=== PATIENT | male | born 1945 | race Caucasian/White ===

== ENCOUNTER 2017-03-12 17:05 | Observation (INO) | payer OTHER, MEDICARE, BC ==
[~2017-03-12] VITALS: Ht 182.9 cm; Wt 69.0 kg
[~2017-03-12 17:05] MED LIST: ASPI81TA82 PO; BACL10TA PO; CHOL5000 PO; CYCL1PAK PO; DOXY100 PO; DULO60 PO; LACT PO; LACT20SO4 PO; LEVO50TA4 PO; LYRI200C PO; METH10TA PO; MORP60TA20 PO; NITR-29 PO; OXYB5TAB PO; OXYC5 PO; REQU2TAB3 PO; SENN8.6T15 PO; TAB-TAB PO; TUB TRANSFER BENCH
[2017-03-12 17:15] VITALS: BP 146/80; PULSE 93; RESP 15; TEMP 97.8; O2SAT 96
[2017-03-12 17:18] VITALS: BP 146/80; PULSE 93; RESP 18; O2SAT 96
[2017-03-12] MEDS ORDERED: CYCL1TAB29 PO (17:58)
[2017-03-12] MEDS ORDERED: LYRI200C PO (17:58)
[2017-03-12] MEDS ORDERED: SENN8.6T15 PO (17:58)
[2017-03-12] MEDS ORDERED: ASPI81TA11 PO (17:58)
--- NOTE | 2017-03-12 18:25 | PD ---
HPI Chief Complaint: Fall Time Seen by Provider: 17:24 Travel History International Travel<30 days: No Contact w/Intl Traveler<30days: No Traveled to known affect area: No History of Present Illness HPI 72yo M with PMH of chronic back pain here with c/o lower back pain s/p fall at noon today. States he got out of bed and slipped and fell on mattress and hit his lower back. Denies any head trauma, LOC, chest pain, sob, n/v, abdominal pain, focal weakness or numbness. PFSH Past Medical History Anemia: Yes Arthritis: No Asthma: No Autoimmune Disease: No Blood Disorders: No Anxiety: No Depression: Yes Heart Rhythm Problems: No Cancer: No Cardiac Catheterization: Yes Cardiovascular Problems: Yes (CABG) High Cholesterol: No Chemotherapy: No Chest Pain: No Congestive Heart Failure: No COPD: No Cerebrovascular Accident: No Coronary Artery Disease: Yes Dementia: Yes Diabetes: No Diminished Hearing: No Endocrine: Yes GERD: Yes Genitourinary: Yes (SUPRAPUBIC CATH, D/T neurogenic bladder) Headaches: Yes Hiatal Hernia: No Hypertension: No Immune Disorder: No Implanted Vascular Access Dvce: Yes Kidney Stones: No Medical other: Yes (chronic back pain,cad,some dementia,anemia,high cholesterol ,pvd,) Musculoskeletal: Yes (BACK; SIATICA) Neurologic: Yes Psychiatric: No Reproductive: No Respiratory: No Migraines: No Radiation Therapy: No Renal Failure: No Seizures: No Sickle Cell Disease: No Sleep Apnea: No Thyroid Disease: Yes Ulcer: No Influenza Vaccination: Yes Past Surgical History Abdominal Surgery: No AICD: No Arteriovenous Shunt: No Body Medical Devices: WIRE IN JAW; Suprapubic catheter Cardiac Surgery: Yes (BYPASS in ) Cholecystectomy: Yes Coronary Artery Bypass Graft: Yes (2004) Ear Surgery: No Endocrine Surgery: No Eye Surgery: No Genitourinary Surgery: Yes (Suprapubic catheter) Gynecologic Surgery: No Insulin Pump: No Joint Replacement: No Neurologic Surgery: No Oral Surgery: No Pacemaker: No Thoracic Surgery: No Other Surgery: Yes (BACK; GALLBLADDER; BYPASS) Social History Alcohol Use: No Tobacco Use: No (QUIT 30 YEARS AGO ) Substance Use: No Allergies-Medications (Allergen,Severity, Reaction): Coded Allergies: *MDRO Multi-Drug Resistant Organism (Verified Adverse Reaction, Unknown, ) MRSA (urine) - 02/01/16, 02/12/2016 Reported Meds & Prescriptions Reported Meds & Active Scripts Active Tub Transfer Bench (Device) Device 1 Ea Reported Flexeril (Cyclobenzaprine HCl) 10 Mg Tab 10 Mg PO BID PRN Aspirin EC (Aspirin) 81 Mg Tabdr 81 Mg PO DAILY Lyrica (Pregabalin) 200 Mg Cap 200 Mg PO BID Senna Lax (Sennosides) 8.6 Mg Tab 8.6 Mg PO DAILY Review of Systems Except as stated in HPI: all other systems reviewed are Neg Physical Exam Narrative GENERAL: 72yo M in mild distres. SKIN: Focused skin assessment warm/dry. HEAD: Atraumatic. Normocephalic. EYES: Pupils equal and round. No scleral icterus. No injection or drainage. ENT: No nasal bleeding or discharge. Mucous membranes pink and moist. NECK: Trachea midline. No JVD. CARDIOVASCULAR: Regular rate and rhythm. No murmur appreciated. RESPIRATORY: No accessory muscle use. Clear to auscultation. Breath sounds equal bilaterally. GASTROINTESTINAL: Abdomen soft, non-tender, nondistended. No rebound tenderness or guarding.+Suprapubic catheter in placed. BACK: Left L4 TTP. Mild L4 TTP. Midline surgical scar. MUSCULOSKELETAL: Sensation equal bilaterally. No obvious deformities. No clubbing. No cyanosis. No edema. NEUROLOGICAL: Awake and alert. No obvious cranial nerve deficits. Motor grossly within normal limits. Normal speech. PSYCHIATRIC: Appropriate mood and affect; insight and judgment normal. Data Data Last Documented VS Vital Signs Date Time Temp Pulse Resp B/P (MAP) Pulse Ox O2 Delivery O2 Flow Rate FiO2 03/12/17 23:07 90 16 141/79 (99) 98 Nasal Cannula 2.00 03/12/17 17:[address] Lumb Spine W/O Contrast (03/12/17 ) Acetamin-Hydrocod 325-5 Mg ([place] 5-325 (03/12/17 19:15) Complete Blood Count With Diff (03/12/17 19:51) Basic Metabolic Panel (Bmp) (03/12/17 19:51) Mri L Spine W&W/O Contrast (03/12/17 ) Mri T Spine W & W/O Contrast (03/12/17 ) Abdomen, Kub Only (03/12/17 ) Urinalysis - C+S If Indicated (03/12/17 21:14) Morphine Inj (Morphine Inj) (03/12/17 22:15) Ondansetron Inj (Zofran Inj) (03/12/17 22:15) Sodium Chlor 0.9% 1000 Ml Inj (Ns 1000 M (03/12/17 22:15) Urine Culture (03/12/17 21:30) Gadodiamide Pf Inj (Omniscan Pf Inj) (03/12/17 21:50) Blood Culture (03/12/17 23:48) Admit Order (Ed Use Only) (03/12/17 23:48) Vancomycin Inj (Vancomycin Inj) (03/12/17 23:48) Gentamicin Inj (Gentamicin Inj) (03/12/17 23:48) Labs Laboratory Tests Test 03/12/17 20:05 03/12/17 21:30 White Blood Count 11.6 TH/MM3 Red Blood Count 4.86 MIL/MM3 Hemoglobin 13.8 GM/DL Hematocrit 42.3 % Mean Corpuscular Volume 87.1 FL Mean Corpuscular Hemoglobin 28.4 PG Mean Corpuscular Hemoglobin Concent 32.6 % Red Cell Distribution Width 15.2 % Platelet Count 250 TH/MM3 Mean Platelet Volume 7.4 FL Neutrophils (%) (Auto) 85.4 % Lymphocytes (%) (Auto) 6.6 % Monocytes (%) (Auto) 7.5 % Eosinophils (%) (Auto) 0.1 % Basophils (%) (Auto) 0.4 % Neutrophils # (Auto) 9.9 TH/MM3 Lymphocytes # (Auto) 0.8 TH/MM3 Monocytes # (Auto) 0.9 TH/MM3 Eosinophils # (Auto) 0.0 TH/MM3 Basophils # (Auto) 0.0 TH/MM3 CBC Comment DIFF FINAL Differential Comment Blood Urea Nitrogen 13 MG/DL Creatinine 0.68 MG/DL Random Glucose 86 MG/DL Calcium Level 8.7 MG/DL Sodium Level 135 MEQ/L Potassium Level 3.8 MEQ/L Chloride Level 100 MEQ/L Carbon Dioxide Level 27.2 MEQ/L Anion Gap 8 MEQ/L Estimat Glomerular Filtration Rate 115 ML/MIN Urine Color YELLOW Urine Turbidity CLOUDY Urine pH 7.5 Urine Specific [place] 1.017 Urine Protein 30 mg/dL Urine Glucose (UA) NEG mg/dL Urine Ketones 10 mg/dL Urine Occult Blood SMALL Urine Nitrite POS Urine Bilirubin NEG Urine Urobilinogen LESS THAN 2.0 MG/DL Urine Leukocyte Esterase LARGE Urine RBC 26 /hpf Urine WBC /hpf Urine Amorphous Sediment RARE Urine Bacteria MANY /hpf Urine Mucus FEW /lpf Microscopic Urinalysis Comment CULTURE INDICATED MDM Medical Decision Making Medical Screen Exam Complete: Yes Emergency Medical Condition: Yes Differential Diagnosis Acute on chronic back pain vs. fracture Narrative Course 72yo M with lower back pain after falling at noon today. CT LS spine showed no acute fracture. Stable retrolisthesis of L2 on L3 of 6-7mm. Post remote laminectomy at L1-L2 and L2-L3 levels. Pt given lortab for pain. Pt said this is new but as per our record, he has chronic back pain. Pt able to lift both legs and sensation intact. However, pt states he his bilateral legs are weak and we used four people to help him ambulate but he is unable to ambulate. He usually ambulates with walker. Will do labs, MRI LS and sign out to next team to evaluate. Leelee Modi DO Mar 12, 2017 18:25
[2017-03-12 18:46] VITALS: BP 144/86; PULSE 87; RESP 16; O2SAT 100
--- NOTE | 2017-03-12 19:00 | RADRPT ---
EXAM DATE/TIME: 03/12/2017 18:29 [facility] COMPARISON: MRI LUMBAR SPINE W & W/O CONTRAST, January 11, 2016, 19:37. INDICATIONS : Severe back pain . Found on floor. RADIATION DOSE: 35.86 CTDIvol (mGy) MEDICAL HISTORY : Known posterior subluxation of L2 on L3 and disc bulges. Dementia. Cardiovascular disease Gastroesoph ageal reflux disease. SURGICAL HISTORY : CABG Cholecystectomy. ENCOUNTER: Initial ACUITY: 1 day PAIN SCALE: 9/10 LOCATION: back TECHNIQUE: Volumetric scanning of the lumbar spine was performed. Multiplanar reconstructions in the sagittal, coronal and oblique axial planes were performed. Using automated exposure control and adjustment of the mA and/or kV according to patient size, radiation dose was kept as low as reasonably achievable t o obtain optimal diagnostic quality images. DICOM format image data is available electronically for review and comparison. FINDINGS: VERTEBRAE: Normal vertebral body height. Mild degenerative changes are again noted greatest at the L2-3 level wi th vacuum disc phenomenon. There is diffuse osteopenia. ALIGNMENT: History subluxation of L2 on L3 is again noted of approximately 6-7 mm. T12-L1: The thecal sac has a normal diameter. No evidence of disc bulge or protrusion. The neural foramina are patent bilaterally. L1-L2: There is a mild annular disc bulge with mild flattening the anterior thecal sac no focal protrusion. The patient status post laminectomy.. The neural foramina are patent bilaterally. L2-L3: Posterior subluxation of L2 on L3 is again noted. There is a diffuse moderate disc bulge with flatten ing of the anterior thecal sac and narrowing of the neural foramina bilaterally. The patient is statu s post laminectomy. L3-L4: There is a mild disc bulge with minimal flattening of the anterior thecal sac and no focal protrusion . The neural foramina are patent bilaterally. L4-L5: There is a mild disc bulge with minimal flattening of the anterior thecal sac and no focal protrusion . The neural foramina are patent bilaterally. Degenerative changes are noted involving the facet sade nts. L5-S1: There is a mild disc bulge with minimal flattening of the anterior thecal sac and no focal protrusion . The neural foramina are patent bilaterally. Degenerative changes are noted involving the facet sade nts. CONCLUSION: 1. No acute fracture. 2. Stable retrolisthesis of L2 on L3 of 6-7 mm. 3. That is post remote laminectomy at the L1-2 and L2-3 levels. 4. Annular disc bulges with flattening of the anterior thecal sac at multiple levels and no focal pro trusion. 5. Degenerative changes involve the facet joints. Sandro Fuentes MD on March 12, 2017 at 18:50 Board Certified Radiologist. This report was verified electronically.
[2017-03-12] MEDS ORDERED: ACETAMINOPHEN/HYDROcodone 325 MG/5 MG TAB PO ONE (19:15)
--- NOTE | 2017-03-12 20:03 | PD ---
Physical Exam Narrative General: The patient is a well-developed well-nourished male in no acute distress Head and Neck exam: Head is normocephalic atraumatic. Eyes: EOMI, pupils are equal round and reactive to light. Nose: Midline septum with pink mucous membranes Mouth: Dentition unremarkable. Moist mucus membranes. Posterior oropharynx is not erythematous. No tonsillar hypertrophy. Uvula midline. Airway patent. Neck: No palpable lymphadenopathy. No nuchal rigidity. No thyromegaly. Cardiovascular: Regular rate and rhythm without murmurs, gallops, or rubs. Lungs: Clear to auscultation bilaterally. No wheezes, rhonchi, or rales. Abdomen: Soft, without tenderness to palpation in all 4 quadrants of the abdomen. No guarding, rebound, or rigidity. Normal bowel sounds are audible. No tenderness on palpation of McBurney's point. The patient has a chronic indwelling suprapubic catheter. Extremities: No clubbing or cyanosis. The patient has trace pedal edema on the right, 1+ on the lab. He reports that his left leg is often more swollen than the right radius unsure of the reason. He does have a bandage in place on the lower extremity below the knee and appears to have some lymphedema. 2+ pulses in all 4 extremities. Back: No costovertebral angle tenderness to palpation. Neurologic Exam: Cranial nerves 2-12 were intact on exam. Strength is 5/5 in bilateral upper extremities, 3 over 5 strength in bilateral lower extremities. Skin Exam: No rash noted. Intact skin that is warm and dry. Data Data Last Documented VS Vital Signs Date Time Temp Pulse Resp B/P (MAP) Pulse Ox O2 Delivery O2 Flow Rate FiO2 03/12/17 23:07 90 16 141/79 (99) 98 Nasal Cannula 2.00 03/12/17 17:[address] Lumb Spine W/O Contrast (03/12/17 ) Acetamin-Hydrocod 325-5 Mg ([place] 5-325 (03/12/17 19:15) Complete Blood Count With Diff (03/12/17 19:51) Basic Metabolic Panel (Bmp) (03/12/17 19:51) Mri L Spine W&W/O Contrast (03/12/17 ) Mri T Spine W & W/O Contrast (03/12/17 ) Abdomen, Kub Only (03/12/17 ) Urinalysis - C+S If Indicated (03/12/17 21:14) Morphine Inj (Morphine Inj) (03/12/17 22:15) Ondansetron Inj (Zofran Inj) (03/12/17 22:15) Sodium Chlor 0.9% 1000 Ml Inj (Ns 1000 M (03/12/17 22:15) Urine Culture (03/12/17 21:30) Gadodiamide Pf Inj (Omniscan Pf Inj) (03/12/17 21:50) Blood Culture (03/12/17 23:48) Admit Order (Ed Use Only) (03/12/17 23:48) Vancomycin Inj (Vancomycin Inj) (03/12/17 23:48) Gentamicin Inj (Gentamicin Inj) (03/12/17 23:48) Labs Laboratory Tests Test 03/12/17 20:05 03/12/17 21:30 White Blood Count 11.6 TH/MM3 Red Blood Count 4.86 MIL/MM3 Hemoglobin 13.8 GM/DL Hematocrit 42.3 % Mean Corpuscular Volume 87.1 FL Mean Corpuscular Hemoglobin 28.4 PG Mean Corpuscular Hemoglobin Concent 32.6 % Red Cell Distribution Width 15.2 % Platelet Count 250 TH/MM3 Mean Platelet Volume 7.4 FL Neutrophils (%) (Auto) 85.4 % Lymphocytes (%) (Auto) 6.6 % Monocytes (%) (Auto) 7.5 % Eosinophils (%) (Auto) 0.1 % Basophils (%) (Auto) 0.4 % Neutrophils # (Auto) 9.9 TH/MM3 Lymphocytes # (Auto) 0.8 TH/MM3 Monocytes # (Auto) 0.9 TH/MM3 Eosinophils # (Auto) 0.0 TH/MM3 Basophils # (Auto) 0.0 TH/MM3 CBC Comment DIFF FINAL Differential Comment Blood Urea Nitrogen 13 MG/DL Creatinine 0.68 MG/DL Random Glucose 86 MG/DL Calcium Level 8.7 MG/DL Sodium Level 135 MEQ/L Potassium Level 3.8 MEQ/L Chloride Level 100 MEQ/L Carbon Dioxide Level 27.2 MEQ/L Anion Gap 8 MEQ/L Estimat Glomerular Filtration Rate 115 ML/MIN Urine Color YELLOW Urine Turbidity CLOUDY Urine pH 7.5 Urine Specific [place] 1.017 Urine Protein 30 mg/dL Urine Glucose (UA) NEG mg/dL Urine Ketones 10 mg/dL Urine Occult Blood SMALL Urine Nitrite POS Urine Bilirubin NEG Urine Urobilinogen LESS THAN 2.0 MG/DL Urine Leukocyte Esterase LARGE Urine RBC 26 /hpf Urine WBC /hpf Urine Amorphous Sediment RARE Urine Bacteria MANY /hpf Urine Mucus FEW /lpf Microscopic Urinalysis Comment CULTURE INDICATED MDM Medical Record Reviewed: Yes Supervised Visit with DEBBIE: No Interpretation(s) Last Impressions Lumbar Spine CT 03/12/17 0000 Signed Impressions: Service Date/Time: Sunday, March 12, 2017 18:29 - CONCLUSION: 1. No acute fracture. 2. Stable retrolisthesis of L2 on L3 of 6-7 mm. 3. That is post remote laminectomy at the L1-2 and L2-3 levels. 4. Annular disc bulges with flattening of the anterior thecal sac at multiple levels and no focal protrusion. 5. Degenerative changes involve the facet joints. Sandro Fuentes MD Narrative Course During the course of the patients emergency department visit, the patient was initially evaluated by Dr. Modi. Please see her complete history and physical. The patient reports having a history of chronic back pain and a reported history of fall. CT scan of the lumbar spine was done. CT scan lumbar spine showed no acute abnormality, chronic degenerative changes were noted, however when an attempt was made to ambulate the patient the patient was not able to walk. The patient reported having increased weakness in bilateral lower extremities. She decided to obtain IV access in order an MRI to rule out cord compression versus cauda equina syndrome. The patient's case was then checked out to me at the conclusion of her shift. The patient was initially provided hydrocodone 1 tab by mouth 1. The patients laboratory studies were reviewed and remarkable for a white count of 11.6, hemoglobin 13.8, platelets 250 with 85.4 neutrophils, lymphocytes 6.6, basic metabolic profile is remarkable for sodium of 135, a urinalysis was ordered due to the patient's slightly elevated white blood cell count. The patient's urine showed cloudy urine, 30 protein, small occult blood, positive nitrite, large leukocyte esterase, 26 RBCs, innumerable WBCs, many bacteria. Culture was indicated. Given the patient's history of multidrug resistant organisms and chronic indwelling suprapubic catheter patient was started on broad-spectrum antibiotics to include vancomycin 1 g IV, gentamicin IV. Radiology studies were reviewed and remarkable for CT scan lumbar spine shows no acute fracture. Stable retrolisthesis of L2 on L3 of 6-7 mm that is post remote laminectomy at L1-L2 and L2-L3. Annular disc bulges with flattening of the anterior thecal sac at multiple levels and no focal protrusion. Degenerative changes involving the facet joints. MRI of the T-spine showed mild multilevel degenerative spondylosis of the thoracic spine that is stable, no acute fracture or abnormal enhancement, MRI of the lumbar spine shows stable grade 14 mm retrolisthesis of L2 on L3 with effacement of the anterior right lateral recess. There is otherwise appropriate posterior laminectomy decompression. Multilevel degenerative spondylosis of the lumbar spine. Stable and nonspecific findings otherwise with 1.4 cm region of decreased signal in the posterior right ileum. The patients results were discussed with the patient, including the plan of care. I explained that further testing and/ or monitoring is indicated based on the patients history, examination, and/ or laboratory findings. Therefore, I recommended admission for additional evaluation. The patient expressed understanding and was agreeable with this plan. The patient was admitted to the hospital in guarded condition and sent to a bed [facility] the [facility]. Physician Communication Physician Communication The patient's case is discussed with Dr. Ferraro who did agree to admit the patient for further evaluation and treatment at this time. Diagnosis Primary Impression: Generalized weakness Additional Impressions: Back pain Qualified Codes: M54.5 - Low back pain Fall Qualified Codes: W19.XXXA - Unspecified fall, initial encounter Urinary tract infection Qualified Codes: T83.510A - Infection and inflammatory reaction due to cystostomy catheter, initial encounter; N39.0 - Urinary tract infection, site not specified Admitting Information Admitting Physician Requests: Luna Lara MD Mar 12, 2017 20:03
[2017-03-12 20:32] LABS: AUTOMATED NEUTROPHIL # 9.9 TH/MM3 (1.8-7.7); BASOPHIL % 0.4 % (0.0-2.0); EOSINOPHIL % 0.1 % (0.0-4.0); HEMATOCRIT 42.3 % (39.0-51.0); HEMO FLAGS DIFF FINAL; LYMPH % 6.6 % (9.0-44.0); LYMPHOCYTE # 0.8 TH/MM3 (1.0-4.8); MEAN CELL VOLUME 87.1 FL (80.0-100.0); MEAN CORPUSCULAR HEMOGLOBIN 28.4 PG (27.0-34.0); MEAN CORPUSCULAR HGB CONC 32.6 % (32.0-36.0); MONO % 7.5 % (0.0-8.0); NEUT % 85.4 % (16.0-70.0); PLATELET COUNT 250 TH/MM3 (150-450); RED BLOOD COUNT 4.86 MIL/MM3 (4.50-5.90); RED CELL DISTRIBUTION WIDTH 15.2 % (11.6-17.2); WHITE BLOOD COUNT 11.6 TH/MM3 (4.0-11.0)
[2017-03-12 20:49] LABS: BICARBONATE 27.2 MEQ/L (21.0-32.0); POTASSIUM 3.8 MEQ/L (3.5-5.1)
[2017-03-12 21:00] VITALS: BP 140/83; PULSE 86; RESP 17; O2SAT 99
[2017-03-12] MEDS ORDERED: GADODIAMIDE PF 287 MG/ML 20 ML VIAL (for RAD MRI) IV PUSH ONE (21:50)
--- NOTE | 2017-03-12 21:50 | RADRPT ---
EXAM DATE/TIME: 03/12/2017 21:16 [facility] COMPARISON: ABDOMEN KUB ONLY, August 21, 2013, 12:20. INDICATIONS : Severe back pain . Found on floor. History of spinal stimulator. Patient found on the floor. MEDICAL HISTORY : Gastroesophageal reflux disease. Known posterior subluxation of L2 on L3 and disc bulges. Demen tia. SURGICAL HISTORY : CABG. Cholecystectomy. ENCOUNTER: Initial ACUITY: 1 day PAIN SCORE: 10/10 LOCATION: Bilateral Lower back. FINDINGS: Supine view of the abdomen was performed. The abdominal bowel gas pattern is normal. No abnormal ma sses, calcifications, or organomegaly is seen. The osseous structures are unremarkable. Suprapubic c atheter is noted. There are interval postoperative changes left hip. The previously noted stimulators have been removed. The patient is noted to be status post median sternotomy. There is a moderate to large amount of stool again noted in the colon. CONCLUSION: 1. Interval removal of previously noted spinal stimulators. 2. Suprapubic catheter in place. 3. Interval postoperative changes involving the left hip. Sandro Fuentes MD on March 12, 2017 at 21:46 Board Certified Radiologist. This report was verified electronically.
[2017-03-12] MEDS ORDERED: ONDANSETRON HCL 4 MG/2 ML VIAL IV PUSH ONE (22:15)
[2017-03-12] MEDS ORDERED: MORPHINE SULFATE 4 MG/ML INJ IV PUSH ONE (22:15)
[2017-03-12 22:44] LABS: BACTERIA, URINE MANY /hpf; BLOOD, URINE SMALL (NEG); COMMENT (UR) CULTURE INDICATED; CULTURE IF INDICATED CULTURE INDICATED; GLUCOSE,URINE NEG (NEG); KETONE, URINE 10 mg/dL (NEG); MUCUS URINE FEW /lpf (OCC); NITRITE,URINE POS (NEG); PH, URINE 7.5 (5.0-8.5); URINE COLOR YELLOW (YELLW/STRAW)
[2017-03-12 23:07] VITALS: BP 141/79; PULSE 90; RESP 16; O2SAT 98
--- NOTE | 2017-03-12 23:23 | RADRPT ---
EXAM DATE/TIME: 03/12/2017 21:48 [facility] COMPARISON: CT LUMBAR SPINE W/O CONTRAST, March 12, 2017, 18:29. MRI LUMBAR SPINE W & W/O CONTRAST, January 11, 2016, 19:37. INDICATIONS : Pain. CONTRAST: 16 cc Omniscan (gadodiamide) IV MEDICAL HISTORY : Gastroesophageal reflux disease. SURGICAL HISTORY : CABG Fusion, lumbar. Cholecystectomy. ENCOUNTER: Initial ACUITY: 2 day PAIN SCORE: 6/10 LOCATION: back TECHNIQUE: Multiplanar multisequence MRI of the lumbar spine was performed with and without contr ast. FINDINGS: The most caudal appearing lumbar vertebra is numbered as L5. VERTEBRAE: Slightly heterogeneous degenerative signal particularly in the lower lumbar spine. [place] tebral body heights are maintained. There is stable grade 1 retrolisthesis of L2 on L3, measuring victor manuel roximately 4 mm. Discs are diffusely desiccated. CONUS: Normal level and configuration. POST CONTRAST: No abnormal areas of contrast enhancement are seen. Paraspinal soft tissues: Numerous bilateral renal cystic lesions. Visualized abdominal aorta is norm al in caliber. No significant retroperitoneal adenopathy. Previously described nonspecific area of fo aubree low signal seen in the right ilium on previous exam is again noted and appears unchanged. T12-L1: The thecal sac has a normal diameter. No evidence of disc bulge or protrusion. The neural foramina are patent bilaterally. L1-L2: Mild diffuse disc bulge. No significant central canal stenosis. Mild caudal neural foraminal n arrowing. L2-L3: Stable retrolisthesis of L2 on L3 with diffuse disc bulge and eccentric posterior osteophytes. Post laminectomy changes. Moderate left and mild right facet arthropathy. Effacement of the right an terior lateral recess. Central canal is otherwise patent. Moderate to severe left neural foraminal na rrowing due to disc osteophyte and facet osteophytes. L3-L4: Mild diffuse disc bulge with bilateral facet arthropathy and mild ligamentum flavum hypertroph y. Mild effacement of the anterior thecal sac. Mild bilateral Caudal neural foraminal narrowing. L4-L5: The diffuse disc space narrowing with anterior fissure. Moderate left and mild right facet art hropathy. Central canal is mildly narrowed posteriorly due to facet osteophytes. Mild bilateral cauda l neural foraminal narrowing. L5-S1: Mild diffuse disc bulge without significant central canal stenosis. Mild caudal bilateral neur al foraminal narrowing. CONCLUSION: 1. Stable grade 1, 4 mm, retrolisthesis of L2 on L3 with effacement of the anterior right lateral rec ess. There is otherwise appropriate posterior laminectomy decompression. 2. Multilevel degenerative spondylosis of the lumbar spine, as above. 3. Stable nonspecific 1.4 cm region of decreased signal in the posterior right ilium. Eladio Schumacher MD on March 12, 2017 at 23:08 Board Certified Radiologist. This report was verified electronically.
--- NOTE | 2017-03-12 23:46 | RADRPT ---
EXAM DATE/TIME: 03/12/2017 21:48 [facility] COMPARISON: No previous studies available for comparison. INDICATIONS : Pain. CONTRAST: 16 cc Omniscan (gadodiamide) IV MEDICAL HISTORY : Gastroesophageal reflux disease. SURGICAL HISTORY : CABG Fusion, lumbar. Cholecystectomy. ENCOUNTER: Initial ACUITY: 3 day PAIN SCORE: 6/10 LOCATION: Back TECHNIQUE: Multiplanar multisequence MRI of the thoracic spine was performed. FINDINGS: VERTEBRA: Vertebral body heights are intact. Mild diffusely heterogeneous degenerative signal. ALIGNMENT: Side alignment is maintained.. CORD: Normal position and configuration. POST CONTRAST: No abnormal areas of contrast enhancement seen. T1-T2: Normal. T2-T3: Bilateral mild posterior disc osteophyte complex with effacement of the anterior thecal sac. No signi ficant neural foraminal stenosis. T3-T4: Mild diffuse disc space loss with diffuse disc bulge effacing the anterior thecal sac. Central canal measures approximately 11 mm. No significant neural foraminal stenosis. T4-T5: The thecal sac has a normal diameter. No evidence of disc bulge or protrusion. T5-T6: The thecal sac has a normal diameter. No evidence of disc bulge or protrusion. T6-T7: The thecal sac has a normal diameter. No evidence of disc bulge or protrusion. T7-T8: Eccentric left posterior disc osteophyte complex. No significant central canal stenosis. mild caudal left neural foraminal narrowing. T8-T9: Mild diffuse disc bulge with mild effacement of the anterior thecal sac. Central canal measures 12 mm . No significant neural foraminal stenosis. T9-T10: Left eccentric posterior disc osteophyte complex effacing the left anterior lateral recess. Mild left caudal neural foraminal narrowing. T10-T11: Diffuse disc bulge effacing the anterior thecal sac with central canal measuring 11 mm. Mild caudal b ilateral neural foraminal narrowing. T11-T12: The thecal sac has a normal diameter. No evidence of disc bulge or protrusion. T12-L1: Mild diffuse disc bulge without significant central canal or neural foraminal stenosis. CONCLUSION: 1. Mild multilevel degenerative spondylosis of the thoracic spine, stable. 2. No acute fracture or abnormal enhancement. Eladio Schumacher MD on March 12, 2017 at 23:37 Board Certified Radiologist. This report was verified electronically.
[2017-03-12] MEDS ORDERED: VANCOMYCIN INJ 1,000 MG in SODIUM CHLOR 0.9% 250 ML INJ 250 ML IV STA (23:48)
[2017-03-12] MEDS ORDERED: GENTAMICIN IV STA (23:48)
[2017-03-12] MEDS ORDERED: SODIUM CHLORIDE 0.9% IV STA (23:48)
[2017-03-13] VITALS (11 sets, daily range): BP systolic 118–143; BP diastolic 64–73; PULSE 84–95; RESP 16–18; TEMP 97.8–98.4; O2SAT 97–100
[2017-03-13] MEDS: SODIUM CHLOR 0.9% 1000 ML INJ 1,000 ML IV SCH ×2 (00:19→12:08)
[2017-03-13] MEDS ORDERED: BISACODYL 10 MG SUPP RECTAL PRN (00:45)
[2017-03-13] MEDS ORDERED: MORPHINE SULFATE 4 MG/ML INJ IV PRN (00:45)
[2017-03-13] MEDS ORDERED: NALOXONE HCL 0.4 MG/ML AMP IV PRN (00:45)
[2017-03-13] MEDS ORDERED: ACETAMINOPHEN 325 MG TAB PO PRN (00:45)
[2017-03-13] MEDS ORDERED: ACETAMINOPHEN/HYDROcodone 325 MG/5 MG TAB PO PRN (00:45)
[2017-03-13] MEDS ORDERED: ONDANSETRON HCL 4 MG/2 ML VIAL IVP PRN (00:45)
[2017-03-13] MEDS ORDERED: SENNOSIDES 8.6 MG TAB PO PRN (00:45)
[2017-03-13] MEDS ORDERED: MAGNESIUM HYDROXIDE SUSP 30 ML CUP PO PRN (00:45)
[2017-03-13] MEDS: ACETAMINOPHEN/HYDROcodone 325 MG/7.5 MG TAB PO PRN ×2 (02:44→22:36)
[2017-03-13] MEDS: HEPARIN SODIUM - SQ 10,000 UNITS/ML VIAL SQ SCH ×4 (02:44→22:37)
--- NOTE | 2017-03-13 05:18 | HHI.HP ---
HPI Service [facility] Primary Care Physician Unknown Admission Diagnosis Generalized weakness, inability to ambulate, UTI Diagnoses: Chief Complaint: Back pain status post fall Travel History International Travel<30 Days: No Contact w/Intl Traveler <30 Da: No Traveled to Known Affected Are: No History of Present Illness 72 years old male with past medical history of chronic back pain presented to the ED complaining of lower back pain status post fall patient stated he slipped out of his bed today, patient looks extremely frail, he is rarely answering question, forgetful, he is oriented to place and person but not time. Patient told me he had poor circulation in his lower extremity for which he see his doctor but he never had surgery, he denied abdominal pain diarrhea constipation fever or chills, shortness of breath or chest pain Review of Systems All systems reviewed and was positive for what is mentioned in history of present illness otherwise negative Past Family Social History Past Medical History Anemia Depression Cardiac catheter CABG Suprapubic catheter due to neurogenic bladder Chronic back pain Dementia Hyperlipidemia Sciatica Past Surgical History CABG in 1999 05 Wiring jaw Suprapubic catheter Allergies: Coded Allergies: *MDRO Multi-Drug Resistant Organism (Verified Adverse Reaction, Unknown, ) MRSA (urine) - 02/01/16, 02/12/2016 Family History Review with the patient,not aware of significant medical history runs in his family Social History Denied tobacco alcohol or illicit drug abuse Physical Exam Vital Signs Vital Signs Date Time Temp Pulse Resp B/P (MAP) Pulse Ox O2 Delivery O2 Flow Rate FiO2 03/13/17 03:54 87 03/13/17 03:45 16 03/13/17 02:39 98.4 95 16 119/66 (83) 98 03/13/17 02:28 03/12/17 23:07 90 16 141/79 (99) 98 Nasal Cannula 2.00 03/12/17 21:00 86 17 140/83 (102) 99 Nasal Cannula 3.00 03/12/17 18:46 87 16 144/86 (105) 100 Room Air 03/12/17 17:18 93 18 146/80 (102) 96 Room Air 03/12/17 17:15 97.8 93 15 146/80 (240) 96 Physical Exam GENERAL: This is a well-nourished, well-developed patient, in no apparent distress. SKIN: No rashes, ecchymoses or lesions. Cool and dry. HEAD: Atraumatic. Normocephalic. No temporal or scalp tenderness. EYES: Pupils equal round and reactive. Extraocular motions intact. No scleral icterus. No injection or drainage. ENT: Nose without bleeding, purulent drainage or septal hematoma. Throat without erythema, tonsillar hypertrophy or exudate. Uvula midline. Airway patent. NECK: Trachea midline. No JVD or lymphadenopathy. Supple, nontender, no meningeal signs. CARDIOVASCULAR: Regular rate and rhythm without murmurs, gallops, or rubs. RESPIRATORY: Clear to auscultation. Breath sounds equal bilaterally. No wheezes , rales, or rhonchi. GASTROINTESTINAL: Abdomen soft, non-tender, nondistended. No hepato-splenomegaly , or palpable masses. No guarding. MUSCULOSKELETAL: Extremities without clubbing, cyanosis, or edema. No joint tenderness, effusion, or edema noted. No calf tenderness. Negative Homans sign bilaterally. NEUROLOGICAL: Awake and alert. Cranial nerves II through XII intact. Motor and sensory grossly within normal limits. Five out of 5 muscle strength in all muscle groups. Normal speech. Laboratory Laboratory Tests Test 03/12/17 20:05 03/12/17 21:30 White Blood Count 11.6 Red Blood Count 4.86 Hemoglobin 13.8 Hematocrit 42.3 Mean Corpuscular Volume 87.1 Mean Corpuscular Hemoglobin 28.4 Mean Corpuscular Hemoglobin Concent 32.6 Red Cell Distribution Width 15.2 Platelet Count 250 Mean Platelet Volume 7.4 Neutrophils (%) (Auto) 85.4 Lymphocytes (%) (Auto) 6.6 Monocytes (%) (Auto) 7.5 Eosinophils (%) (Auto) 0.1 Basophils (%) (Auto) 0.4 Neutrophils # (Auto) 9.9 Lymphocytes # (Auto) 0.8 Monocytes # (Auto) 0.9 Eosinophils # (Auto) 0.0 Basophils # (Auto) 0.0 CBC Comment DIFF FINAL Differential Comment Blood Urea Nitrogen 13 Creatinine 0.68 Random Glucose 86 Calcium Level 8.7 Sodium Level 135 Potassium Level 3.8 Chloride Level 100 Carbon Dioxide Level 27.2 Anion Gap 8 Estimat Glomerular Filtration Rate 115 Urine Color YELLOW Urine Turbidity CLOUDY Urine pH 7.5 Urine Specific [place] 1.017 Urine Protein 30 Urine Glucose (UA) NEG Urine Ketones 10 Urine Occult Blood SMALL Urine Nitrite POS Urine Bilirubin NEG Urine Urobilinogen LESS THAN 2.0 Urine Leukocyte Esterase LARGE Urine RBC 26 Urine WBC Urine Amorphous Sediment RARE Urine Bacteria MANY Urine Mucus FEW Microscopic Urinalysis Comment CULTURE INDICATED Date/Time Source Procedure Growth Status 03/13/17 00:45 Blood Peripheral Aerobic Blood Culture Pending Received 03/13/17 00:45 Blood Peripheral Anaerobic Blood Culture Pending Received 03/12/17 21:30 Urine Random Urine Urine Culture Pending Worksheet Result Diagram: 03/12/17200403/12/172004 Caprini VTE Risk Assessment Caprini VTE Risk Assessment: Mod/High Risk (score >= 2) Caprini Risk Assessment Model Point Value = 1 Point Value = 2 Point Value = 3 Point Value = 5 Age 41-60 Minor surgery BMI > 25 kg/m2 Swollen legs Varicose veins or History of unexplained or recurrent spontaneous Oral contraceptives or hormone replacement Sepsis (< 1 month) Serious lung disease, including pneumonia (< 1 month) Abnormal pulmonary function Acute myocardial infarction Congestive heart failure (< 1 month) History of inflammatory bowel disease Medical patient at bed rest Age 61-74 Arthroscopic surgery Major open surgery (> 45 min) Laparoscopic surgery (> 45 min) Malignancy Confined to bed (> 72 hours) Immobilizing plaster cast Central venous access Age >= 75 History of VTE Family history of VTE Factor V Leiden Prothrombin [id number] Lupus anticoagulant Anticardiolipin antibodies Elevated serum homocysteine Heparin-induced thrombocytopenia Other congenital or acquired thrombophilia Stroke (< 1 month) Elective arthroplasty Hip, pelvis, or leg fracture Acute spinal cord injury (< 1 month) Prophylaxis Regimen Total Risk Factor Score Risk Level Prophylaxis Regimen 0-1 Low Early ambulation 2 Moderate Order ONE of the following: *Sequential Compression Device (SCD) *Heparin 5000 units SQ BID 3-4 Higher Order ONE of the following medications: *Heparin 5000 units SQ TID *Enoxaparin/Lovenox 40 mg SQ daily (WT < 150 kg, CrCl > 30 mL/min) *Enoxaparin/Lovenox 30 mg SQ daily (WT < 150 kg, CrCl > 10-29 mL/min) *Enoxaparin/Lovenox 30 mg SQ BID (WT < 150 kg, CrCl > 30 mL/min) AND/OR *Sequential Compression Device (SCD) 5 or more Highest Order ONE of the following medications: *Heparin 5000 units SQ TID (Preferred with Epidurals) *Enoxaparin/Lovenox 40 mg SQ daily (WT < 150 kg, CrCl > 30 mL/min) *Enoxaparin/Lovenox 30 mg SQ daily (WT < 150 kg, CrCl > 10-29 mL/min) *Enoxaparin/Lovenox 30 mg SQ BID (WT < 150 kg, CrCl > 30 mL/min) AND *Sequential Compression Device (SCD) Assessment and Plan Assessment and Plan 72 years old male presented with Severe Lower extremity weakness status post fall with severe with pain - Patient seems to have history of claudication might be related to this - MRI of the lower back ruled out spina equina/fracture or lumbar spine etiology, imaging MRI CT reviewed personally by me -Continue conservative pain management, PT OT -Case management consult For discharge to rehabilitation this patient lives by himself There are several neuropathy: Continue Lyrica Questionable history of claudication: We'll check BOO, Consider surgical consult DVT prophylaxis with SCD and heparin Discussed Condition With Patient in ED physician Digna Ferraro MD Mar 13, 2017 05:18
[2017-03-13] MEDS ORDERED: Vancomycin Consult Pharmacy 1 EA OTHER SCH (08:15)
[2017-03-13] MEDS: PREGABALIN 100 MG CAP PO SCH ×2 (09:16→22:37)
[2017-03-13] MEDS: DOCUSATE SODIUM 50 MG/SENNA 8.6 MG TAB PO SCH ×2 (09:17→22:37)
[2017-03-13] MEDS: ASPIRIN EC 81 MG TABEC PO SCH (09:17)
--- NOTE | 2017-03-13 10:11 | HHI.PR ---
Subjective Remarks Follow up for low back pain s/p fall. The patient complains of diffuse lumbar pain across bilateral lumbar paraspinous muscles without radiation down the buttocks/legs. The pain is unchanged compared to his arrival. Denies any specific lower extremity weakness but does report a history of "poor circulation " in both legs. He normally ambulates around his home with a walker but this has become more difficult. He would consider going to short term rehab if recommended. The patient's urinalysis shows UTI. The patient has a suprapubic catheter. He denies any recent fevers/chills or suprapubic pain. He denies any drainage around the tube. He has his suprapubic catheter changed monthly in his home however cannot recall the last time this was changed. Objective Vitals Vital Signs Date Time Temp Pulse Resp B/P (MAP) Pulse Ox O2 Delivery O2 Flow Rate FiO2 03/13/17 07:21 97.8 89 16 118/64 (82) 100 03/13/17 06:17 Nasal Cannula 2.00 03/13/17 03:54 87 03/13/17 03:45 16 03/13/17 02:39 98.4 95 16 119/66 (83) 98 03/13/17 02:28 03/12/17 23:07 90 16 141/79 (99) 98 Nasal Cannula 2.00 03/12/17 21:00 86 17 140/83 (102) 99 Nasal Cannula 3.00 03/12/17 18:46 87 16 144/86 (105) 100 Room Air 03/12/17 17:18 93 18 146/80 (102) 96 Room Air 03/12/17 17:15 97.8 93 15 146/80 (102) 96 I/O 03/12/17 03/12/17 03/12/17 03/13/17 03/13/17 03/13/17 07:00 15:00 23:00 07:00 15:00 23:00 Intake Total 358 ml Output Total 1500 ml Balance -1500 ml 358 ml Intake IV Total 358 ml Output Urine Total 1500 ml # Voids 0 Result Diagram: 03/12/17200403/12/172004 Imaging Last Impressions Thoracic Spine MRI 03/12/17 0000 Signed Impressions: Service Date/Time: Sunday, March 12, 2017 21:48 - CONCLUSION: 1. Mild multilevel degenerative spondylosis of the thoracic spine, stable. 2. No acute fracture or abnormal enhancement. Eladio Schumacher MD Lumbar Spine MRI 03/12/17 Signed Impressions: Service Date/Time: Sunday, March 12, 2017 21:48 - CONCLUSION: 1. Stable grade 1, 4 mm, retrolisthesis of L2 on L3 with effacement of the anterior right lateral recess. There is otherwise appropriate posterior laminectomy decompression. 2. Multilevel degenerative spondylosis of the lumbar spine, as above. 3. Stable nonspecific 1.4 cm region of decreased signal in the posterior right ilium. Eladio Schumacher MD Lumbar Spine CT 03/12/17 Signed Impressions: Service Date/Time: Sunday, March 12, 2017 18:29 - CONCLUSION: 1. No acute fracture. 2. Stable retrolisthesis of L2 on L3 of 6-7 mm. 3. That is post remote laminectomy at the L1-2 and L2-3 levels. 4. Annular disc bulges with flattening of the anterior thecal sac at multiple levels and no focal protrusion. 5. Degenerative changes involve the facet joints. Sandro Fuentes MD Abdomen X-Ray 03/12/17 Signed Impressions: Service Date/Time: Sunday, March 12, 2017 21:16 - CONCLUSION: 1. Interval removal of previously noted spinal stimulators. 2. Suprapubic catheter in place. 3. Interval postoperative changes involving the left hip. Sandro Fuentes MD Objective Remarks GENERAL: Well-nourished, well-developed elderly male patient in [facility]. SKIN: Warm and dry. No rash. HEENT: Normocephalic. Atraumatic. Pupils equal and round. Mucous membranes pink and moist. NECK: Supple. Trachea midline. CARDIOVASCULAR: Regular rate and rhythm. S1, S2 noted. No murmur appreciated. RESPIRATORY: No accessory muscle use. Clear to auscultation. Breath sounds equal bilaterally. GASTROINTESTINAL: Abdomen soft, non-tender, nondistended. Normoactive bowel sounds x4. GENITOURINARY: Suprapubic catheter in place with dried brown drainage around tube, possibly dried blood; no surrounding erythema/edema. MUSCULOSKELETAL: No obvious deformities. Extremities without clubbing, cyanosis , or edema. NEUROLOGICAL: Awake and alert. No obvious cranial nerve deficits. Motor grossly within normal limits. 4/5 muscle strength in BLE, 5/5 strength in BUE. Normal speech. PSYCHIATRIC: Appropriate mood and affect; insight and judgment normal. Medications and IVs Current Medications Medications (Trade) Dose Ordered Sig/Deloris Route Start Time Stop Time Status Last Admin Sodium Chloride 1,000 ml @ 75 mls/hr [id number] IV 03/12/17 22:15 03/13/17 00:19 (Tylenol) 650 mg Q4H PRN PO 03/13/17 00:45 (Zofran Inj) 4 mg Q6H PRN IVP 03/13/17 00:45 (Heparin Inj) 5,000 units Q8HR SQ 03/13/17 00:45 03/13/17 07:09 ([place] 5-325 Mg) 1 tab Q4H PRN PO 03/13/17 00:45 ([place] 7.5-325 Mg) 1 tab Q4H PRN PO 03/13/17 00:45 03/13/17 02:44 (Morphine Inj) 2 mg Q3H PRN IV 03/13/17 00:45 (Narcan Inj) 0.4 mg UNSCH PRN IV 03/13/17 00:45 (Tiffany-Colace) 1 tab BID PO 03/13/17 09:00 03/13/17 09:17 (Milk Of Magnesia Liq) 30 ml Q12H PRN PO 03/13/17 00:45 (Senokot) 17.2 mg Q12H PRN PO 03/13/17 00:45 (Dulcolax Supp) 10 mg DAILY PRN RECTAL 03/13/17 00:45 (Ecotrin Ec) 81 mg DAILY PO 03/13/17 09:00 03/13/17 09:17 (Lyrica) 200 mg BID PO 03/13/17 09:00 03/13/17 09:16 Pharmacy Profile Note 0 ml @ 0 mls/hr UNSCH OTHER 03/13/17 08:15 Vancomycin HCl 1000 mg/Sodium Chloride 250 ml @ 250 mls/hr Q12H IV 03/13/17 12:00 Miscellaneous Information SPECIFIC LAB TO BE DRAWN:VANCOMYCIN TROUGH DATE TO... ONCE ONCE .XX 03/14/17 11:45 9/6/17 11:46 A/P Assessment and Plan 72-year-old male with history of chronic back pain/sciatica, neurogenic bladder with suprapubic catheter, dementia, anemia, CAD, CABG, HLD, presents after slipping out of his bed today 03/13 resulting in low back pain and inability to ambulate. Severe Back Pain and Bilateral Lower Extremity Weakness s/p Fall: patient slipped out of his bed - L-Spine MRI images reviewed, shows stable grade 1 retrolisthesis of L2 on L3 with effacement of anterior right lateral recess; otherwise appropriate posterior laminectomy decompression; multilevel degenerative spondylosis of lumbar spine - T-Spine MRI images reviewed, shows mild multilevel degenerative spondylosis of thoracic spine, stable; no acute fracture - Consult PT/OT - Continue pain management with [place] prn, IV morphine prn breakthrough - Add Lidoderm patch and flexeril prn muscle spasms - Case management consult, patient may need short term rehab Peripheral neuropathy: likely contributing to fall as above - Continue Lyrica Questionable history of claudication: patient reports history of poor circulation but has not been able to follow up with surgeon - check ABIs, consider CTA aorta with runoff and vascular surgery consult only if ABIs remarkable Complicated UTI: +leukocytosis WBC 11.6K, afebrile. UA with pos nitrites, large leuks, WBCs, bacteria. With suprapubic catheter. Prior urine cultures with MRSA , enterococcus faecalis, acinetobacter. Question colonization vs true UTI. -will treat with IV Vanco with pharmacy consult for now -consult infectious disease for further recommendations DVT prophylaxis with SCD and heparin Discharge Planning Discharge pending further clinical improvement and evaluation by PT/OT and ID. May need short term rehab, case management consulted. Possible discharge in 1-2 days. Leisa Hernandez PA-C Mar 13, 2017 10:11 am
[2017-03-13] MEDS ORDERED: CYCLOBENZAPRINE HCL 10 MG TAB PO PRN (10:15)
[2017-03-13] MEDS ORDERED: VANCOMYCIN 1,000 MG/NS 250 ML IV SCH ×2 (12:00)
--- NOTE | 2017-03-13 12:06 | RADRPT ---
EXAM DATE/TIME: 03/13/2017 00:00 [place] COMPARISON: No previous studies available for comparison. INDICATIONS : Inability to Ambulate, Ulcers on LLE TECHNIQUE: Four-cuff ankle and brachial pressures were obtained. Pulse cuff waveform tracings of the ankles were recorded, and ankle-brachial indices were calculated. PRESSURES (mmHg): Brachial (arm): Right 115 Left IV SITE Ankle: Right 104 Left 121 BOO: Right 0.90 Left 1.05 TBI: Right 0.56 left 0.68 PULSED CUFF WAVEFORMS: Demonstrate normal amplitude bilaterally. CONCLUSION: Normal ankle brachial indices. There is slight decrease of the toe brachial index on the right which may reflect small vessel disease Boy Gaitan MD on March 13, 2017 at 12:03 Board Certified Radiologist. This report was verified electronically.
[2017-03-13] MEDS: LIDOCAINE HCL 5% PATCH T-DERMAL SCH (12:09)
--- NOTE | 2017-03-13 17:22 | PD.CONS ---
History of Present Illness Service Infectious disease Consult Requested By Dr Nicci Johns Reason for Consult Eval patient with (+) UA, ?infection vs colonization Primary Care Physician Unknown Diagnoses: History of Present Illness Patient seen and examined. Records reviewed. Patient is a 72-year-old male, admitted to the hospital after he slipped out of his bed. He has history of chronic back pain, and he had some worsening of his back pain. He also was somewhat confused when he initially presented, but his mental status is back to baseline. He denies any fever or chills. Patient has a suprapubic catheter that gets changed at least once a month. Sometimes he changes it, and sometimes the home health nurse changes sit. He could not really remember when the last time it was change. Patient has had previous hospitalization with abnormal urinalysis, and multiple bacteria growing in his urine culture. On this admission his urinalysis did show pyuria. Culture is pending. His WBC is mildly elevated at 11,000. He is afebrile. He is complaining of some abdominal discomfort due to constipation. He currently has no dentures and waiting for the dentures to be made. He is on pured diet, and since then his had some problem with oral intake, and constipation. Patient has a neurogenic bladder and requires the suprapubic catheter. Infectious disease consultation has been requested to evaluate the patient. Review of Systems Constitutional: DENIES: Fatigue, Chills, Night Sweats Eyes: DENIES: Eye pain Ears, nose, mouth, throat: DENIES: Oral lesions, Throat pain Respiratory: DENIES: Cough, Shortness of breath Cardiovascular: COMPLAINS OF: Lower Extremity Edema, DENIES: Chest pain, Palpitations, Dyspnea on Exertion Gastrointestinal: COMPLAINS OF: Abdominal pain, Constipation, DENIES: Diarrhea , Nausea, Vomiting Musculoskeletal: DENIES: Joint pain Integumentary: DENIES: Rash Neurologic: DENIES: Headache Psychiatric: DENIES: Hallucinations Past Family Social History Allergies: Coded Allergies: *MDRO Multi-Drug Resistant Organism (Verified Adverse Reaction, Unknown, ) MRSA (urine) - 02/01/16, 02/12/2016 Past Medical History Anemia Depression Cardiac catheter CABG Suprapubic catheter due to neurogenic bladder Chronic back pain Dementia Hyperlipidemia Sciatica Chronic venous stasis ulcers, goes [facility] the wound care center at [facility] Past Surgical History CABG Wiring jaw Suprapubic catheter Used to have pain pumps, and they have been removed Active Ordered Medications Tylenol Ong Aspirin Dulcolax Flexeril Heparin MOM Morphine Zofran Lyrica Tiffany-Colace Senokot Vancomycin IV Family History Unremarkable Social History Lives alone in an apartment Denies smoking Denies alcohol abuse Denies illicit drugs Physical Exam Vital Signs Vital Signs Date Time Temp Pulse Resp B/P (MAP) Pulse Ox O2 Delivery O2 Flow Rate FiO2 03/13/17 15:52 98.2 85 16 143/73 (96) 99 03/13/17 12:03 88 03/13/17 11:26 98.2 88 16 130/65 (86) 99 03/13/17 07:39 93 03/13/17 07:21 97.8 89 16 118/64 (82) 100 03/13/17 06:17 Nasal Cannula 2.00 03/13/17 03:54 87 03/13/17 03:45 16 03/13/17 02:39 98.4 95 16 119/66 (83) 98 03/13/17 02:28 03/12/17 23:07 90 16 141/79 (99) 98 Nasal Cannula 2.00 03/12/17 21:00 86 17 140/83 (102) 99 Nasal Cannula 3.00 03/12/17 18:46 87 16 144/86 (105) 100 Room Air 03/12/17 17:18 93 18 146/80 (102) 96 Room Air 03/12/17 17:15 97.8 93 15 146/80 (102) 96 Physical Exam GENERAL: Patient is a well-nourished, well-developed male, awake and alert, not in respiratory distress. SKIN: Warm and dry. No generalized rash, no ecchymoses and no evidence of embolic lesions. HEAD: Atraumatic. Normocephalic. No temporal wasting, or tenderness. EYES: [place] conjunctiva. No petechia or hemorrhage. Pupils equal, round and reactive to light. Extraocular movements full and intact. No scleral icterus. No injection or drainage. EARS, NOSE AND THROAT: Nose without bleeding or purulent nasal discharge. No sinus tenderness. Mucous membranes pink and moist. Edentulous. No oral lesions noted. NECK: Trachea midline. Supple and not tender, no meningeal signs CARDIOVASCULAR: Regular rate and rhythm. No murmurs, rubs or gallops heard RESPIRATORY: Clear to auscultation. Breath sounds equal bilaterally. No rales , wheezing or rhonchi ABDOMEN: Soft, non-tender, nondistended. Bowel sounds present and normoactive. No guarding. No rebound. No organomegaly. SPC site looks ok. EXTREMITIES: No clubbing, cyanosis. No joint effusion, has good ROM. No calf tenderness. Well perfused and warm. He has an UNNA boot LLE NEUROLOGICAL: Awake and alert. Cranial nerves grossly intact. Motor grossly within normal limits. PSYCHIATRIC: Normal affect, calm and cooperative. LINE: No evidence of infection Laboratory Laboratory Tests Test 03/12/17 20:05 03/12/17 21:30 White Blood Count 11.6 Red Blood Count 4.86 Hemoglobin 13.8 Hematocrit 42.3 Mean Corpuscular Volume 87.1 Mean Corpuscular Hemoglobin 28.4 Mean Corpuscular Hemoglobin Concent 32.6 Red Cell Distribution Width 15.2 Platelet Count 250 Mean Platelet Volume 7.4 Neutrophils (%) (Auto) 85.4 Lymphocytes (%) (Auto) 6.6 Monocytes (%) (Auto) 7.5 Eosinophils (%) (Auto) 0.1 Basophils (%) (Auto) 0.4 Neutrophils # (Auto) 9.9 Lymphocytes # (Auto) 0.8 Monocytes # (Auto) 0.9 Eosinophils # (Auto) 0.0 Basophils # (Auto) 0.0 CBC Comment DIFF FINAL Differential Comment Blood Urea Nitrogen 13 Creatinine 0.68 Random Glucose 86 Calcium Level 8.7 Sodium Level 135 Potassium Level 3.8 Chloride Level 100 Carbon Dioxide Level 27.2 Anion Gap 8 Estimat Glomerular Filtration Rate 115 Urine Color YELLOW Urine Turbidity CLOUDY Urine pH 7.5 Urine Specific [place] 1.017 Urine Protein 30 Urine Glucose (UA) NEG Urine Ketones 10 Urine Occult Blood SMALL Urine Nitrite POS Urine Bilirubin NEG Urine Urobilinogen LESS THAN 2.0 Urine Leukocyte Esterase LARGE Urine RBC 26 Urine WBC Urine Amorphous Sediment RARE Urine Bacteria MANY Urine Mucus FEW Microscopic Urinalysis Comment CULTURE INDICATED Date/Time Source Procedure Growth Status 03/13/17 00:45 Blood Peripheral Aerobic Blood Culture Pending Received 03/13/17 00:45 Blood Peripheral Anaerobic Blood Culture Pending Received 03/12/17 21:30 Urine Random Urine Urine Culture - Preliminary IMMATURE GROWTH - REINCUBATE Resulted Result Diagram: 03/12/17200403/12/172004 Imaging RADIOLOGY STUDIES/FILMS REVIEWED Thoracic Spine MRI 03/12/17 0000 Signed Impressions: Service Date/Time: Sunday, March 12, 2017 21:48 - CONCLUSION: 1. Mild multilevel degenerative spondylosis of the thoracic spine, stable. 2. No acute fracture or abnormal enhancement. Eladio Schumacher MD Lumbar Spine MRI 03/12/17 0000 Signed Impressions: Service Date/Time: Sunday, March 12, 2017 21:48 - CONCLUSION: 1. Stable grade 1, 4 mm, retrolisthesis of L2 on L3 with effacement of the anterior right lateral recess. There is otherwise appropriate posterior laminectomy decompression. 2. Multilevel degenerative spondylosis of the lumbar spine, as above. 3. Stable nonspecific 1.4 cm region of decreased signal in the posterior right ilium. Eladio Schumacher MD Lumbar Spine CT 03/12/17 0000 Signed Impressions: Service Date/Time: Sunday, March 12, 2017 18:29 - CONCLUSION: 1. No acute fracture. 2. Stable retrolisthesis of L2 on L3 of 6-7 mm. 3. That is post remote laminectomy at the L1-2 and L2-3 levels. 4. Annular disc bulges with flattening of the anterior thecal sac at multiple levels and no focal protrusion. 5. Degenerative changes involve the facet joints. Sandro Fuentes MD Abdomen X-Ray 03/12/17 0000 Signed Impressions: Service Date/Time: Sunday, March 12, 2017 21:16 - CONCLUSION: 1. Interval removal of previously noted spinal stimulators. 2. Suprapubic catheter in place. 3. Interval postoperative changes involving the left hip. Sandro Fuentes MD Assessment and Plan Assessment and Plan IMPRESSION (+) UA, patient with suprapubic cath - no fever or chills, has mild elevation WBC - previous (+) UC, polymicrobial Chronic venous stasis ulcers, has UNNA boot, gets seen at [facility] wound care center RECOMMENDATION Replace SPC repeat UA in AM Bactrim po Stop IV Abx Repeat CBC in AM Will determine course of Abx or need once repeat UA available I will magdalena along with you Thank you for this consultation Discussed Condition With Explained plan to the patient Maryam Cole MD Mar 13, 2017 17:22
[2017-03-13] MEDS: SULFAMETHOXAZOLE-TRIMETHOPRIM DS 800-160 MG TAB PO SCH (22:36)
[2017-03-14] MEDS: SODIUM CHLOR 0.9% 1000 ML INJ 1,000 ML IV SCH (01:29)
[2017-03-14] MEDS ORDERED: HALOPERIDOL LACTATE 5 MG/ML AMP IM ONE (03:45)
[2017-03-14 04:07] VITALS: BP 140/63; PULSE 87; RESP 18; TEMP 99.1; O2SAT 96
[2017-03-14] MEDS: ACETAMINOPHEN/HYDROcodone 325 MG/7.5 MG TAB PO PRN (04:52)
[2017-03-14] MEDS: HEPARIN SODIUM - SQ 10,000 UNITS/ML VIAL SQ SCH (06:08)
[2017-03-14 07:34] VITALS: O2SAT 99
[2017-03-14 08:09] VITALS: BP 101/62; PULSE 89; RESP 16; TEMP 98.1; O2SAT 98
[2017-03-14 08:54] LABS: AUTOMATED NEUTROPHIL # 9.2 TH/MM3 (1.8-7.7); BASOPHIL % 0.4 % (0.0-2.0); EOSINOPHIL # 0.1 TH/MM3 (0-0.4); EOSINOPHIL % 0.5 % (0.0-4.0); HEMATOCRIT 39.8 % (39.0-51.0); HEMO FLAGS DIFF FINAL; LYMPH % 6.8 % (9.0-44.0); LYMPHOCYTE # 0.7 TH/MM3 (1.0-4.8); MEAN CORPUSCULAR HEMOGLOBIN 28.4 PG (27.0-34.0); MEAN CORPUSCULAR HGB CONC 32.6 % (32.0-36.0); MONO % 8.9 % (0.0-8.0); NEUT % 83.4 % (16.0-70.0); PLATELET COUNT 227 TH/MM3 (150-450); RED BLOOD COUNT 4.57 MIL/MM3 (4.50-5.90); RED CELL DISTRIBUTION WIDTH 14.9 % (11.6-17.2)
[2017-03-14 09:05] LABS: POTASSIUM 3.5 MEQ/L (3.5-5.1)
[2017-03-14] MEDS: ASPIRIN EC 81 MG TABEC PO SCH (10:28)
[2017-03-14] MEDS: PREGABALIN 100 MG CAP PO SCH (10:28)
[2017-03-14] MEDS: SULFAMETHOXAZOLE-TRIMETHOPRIM DS 800-160 MG TAB PO SCH (10:28)
[2017-03-14] MEDS: LIDOCAINE HCL 5% PATCH T-DERMAL SCH (10:29)
[2017-03-14] MEDS: DOCUSATE SODIUM 50 MG/SENNA 8.6 MG TAB PO SCH (10:29)
[2017-03-14 11:31] VITALS: BP 118/69; PULSE 92; RESP 16; TEMP 98; O2SAT 100
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
[2017-03-14] MEDS ORDERED: PHARMACY ORDERED LAB ONE (11:45)
[2017-03-14 12:46] LABS: BACTERIA, URINE MANY /hpf; BLOOD, URINE LARGE (NEG); COMMENT (UR) CATH; GLUCOSE,URINE NEG (NEG); KETONE, URINE 10 mg/dL (NEG); MUCUS URINE FEW /lpf (OCC); NITRITE,URINE POS (NEG); URINE COLOR YELLOW (YELLW/STRAW)
[2017-03-14 13:33] VITALS: BP 171/82; PULSE 131; RESP 18; TEMP 98.4; O2SAT 98
== END 2017-03-14 13:55 | disposition left against medical advice (07) ==
LOC: NEPC 17:05 → NEDA 23:54 → INTOOBSV 23:54 → NEPFCDU 03-13 02:16
PROVIDERS: ADMIT Hospitalist; ATTEND Hospitalist
DX: M54.5 Low back pain (principal); G89.29 Other chronic pain; M47.814 Spondylosis without myelopathy or radiculopathy, thoracic region; M47.816 Spondylosis without myelopathy or radiculopathy, lumbar region; N39.0 Urinary tract infection, site not specified; T83.510A Infection and inflammatory reaction due to cystostomy catheter, initial encounter; I83.009 Varicose veins of unspecified lower extremity with ulcer of unspecified site; L97.909 Non-pressure chronic ulcer of unspecified part of unspecified lower leg with unspecified severity; I73.9 Peripheral vascular disease, unspecified; K59.00 Constipation, unspecified; G62.9 Polyneuropathy, unspecified; I25.10 Atherosclerotic heart disease of native coronary artery without angina pectoris; F03.90 Unspecified dementia, unspecified severity, without behavioral disturbance, psychotic disturbance, mood disturbance, and anxiety; K21.9 Gastro-esophageal reflux disease without esophagitis; E78.5 Hyperlipidemia, unspecified; Z95.1 Presence of aortocoronary bypass graft; W01.0XXA Fall on same level from slipping, tripping and stumbling without subsequent striking against object, initial encounter
CPT/HCPCS: 72131; 72157; 72158; 74000; 80048; 81001; 82948; 85025; 87040; 87086; 93922; 96365; 96366; 96372; 96375; 96376; 97161; 97167; 99285; A9579; G0378; G8987; G8988; J1580; J1630; J1644; J2270; J2405; J3370; J7030; J7050

== ENCOUNTER 2017-03-20 13:22 | Inpatient (IN) | payer OTHER, BC, MEDICARE ==
[~2017-03-20] VITALS: Ht 188 cm; Wt 75.2 kg
[2017-03-20 13:22] VITALS: BP 182/104; PULSE 96; RESP 16; TEMP 98.4; O2SAT 100
[~2017-03-20 13:22] MED LIST changes: +ASPI81TA11 PO; -ASPI81TA82 PO; -BACL10TA PO; -CHOL5000 PO; -CYCL1PAK PO; +CYCL1TAB29 PO; -DOXY100 PO; -DULO60 PO; -LACT PO; -LACT20SO4 PO; -LEVO50TA4 PO; -METH10TA PO; -MORP60TA20 PO; -NITR-29 PO; -OXYB5TAB PO; -OXYC5 PO; -REQU2TAB3 PO; -TAB-TAB PO
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
[2017-03-20] MEDS ORDERED: TETANUS/DIPHTHERIA TOXOID ADULT 0.5 ML VIAL IM ONE (14:30)
[2017-03-20] MEDS ORDERED: LIDOCAINE HCL 1% 50 ML VIAL INFIL ONE (14:30)
[2017-03-20 15:19] LABS: AUTOMATED NEUTROPHIL # 9.3 TH/MM3 (1.8-7.7); BASOPHIL % 0.3 % (0.0-2.0); EOSINOPHIL % 0.3 % (0.0-4.0); HEMATOCRIT 43.1 % (39.0-51.0); HEMO FLAGS DIFF FINAL; LYMPH % 6.4 % (9.0-44.0); LYMPHOCYTE # 0.7 TH/MM3 (1.0-4.8); MEAN CELL VOLUME 86.3 FL (80.0-100.0); MEAN CORPUSCULAR HEMOGLOBIN 28.4 PG (27.0-34.0); MEAN CORPUSCULAR HGB CONC 32.9 % (32.0-36.0); MONO % 6.8 % (0.0-8.0); NEUT % 86.2 % (16.0-70.0); PLATELET COUNT 342 TH/MM3 (150-450); RED BLOOD COUNT 4.99 MIL/MM3 (4.50-5.90); RED CELL DISTRIBUTION WIDTH 14.4 % (11.6-17.2); WHITE BLOOD COUNT 10.8 TH/MM3 (4.0-11.0)
[2017-03-20 15:43] LABS: ALT (GPT) 34 U/L (12-78); ANION GAP 9 MEQ/L (5-15); AST (GOT) 22 U/L (15-37); BICARBONATE 29.4 MEQ/L (21.0-32.0); BLOOD UREA NITROGEN 22 MG/DL (7-18); CHLORIDE 93 MEQ/L (98-107); GLOMERULAR FILTRATION RATE 77 ML/MIN (>89); POTASSIUM 3.8 MEQ/L (3.5-5.1); SODIUM (NA) 131 MEQ/L (136-145)
[2017-03-20 15:46] LABS: ACETAMINOPHEN LESS THAN 2.0 MCG/ML (10.0-30.0); ALCOHOL LESS THAN 3 MG/DL (0-5); ALKALINE PHOSPHATASE 133 U/L (45-117); TOTAL BILIRUBIN ADULT 0.6 MG/DL (0.2-1.0)
--- NOTE | 2017-03-20 16:12 | PD ---
Physical Exam Date Seen by Provider: Mar 20, 2017 Time Seen by Provider: 16:07 Narrative I was asked by the provider to repair laceration to both right and left antecubital areas of the arm LACERATION LOCATION: Left antecubital area of the arm LENGTH: 10 cm NUMBER OF STITCHES/PAOLA: 16 REPAIR: The area of the laceration was prepped with Betadine and sterilely draped. The laceration was infiltrated with 1% lidocaine. The wound was copiously irrigated and explored without evidence of foreign body, tendon injury or neurovascular injury. The wound was closed using 4.0 Prolene. This was a single layer repair. A sterile dressing was applied. The patient was advised to keep the dressing clean and dry. Patient tolerated the procedure well. LACERATION LOCATION: Right antecubital area of the arm LENGTH: 2 cm NUMBER OF STITCHES/PAOLA: 2 REPAIR: The area of the laceration was prepped with Betadine and sterilely draped. The laceration was infiltrated with 1% lidocaine]. The wound was copiously irrigated and explored without evidence of foreign body, tendon injury or neurovascular injury. The wound was closed using 4. 0 Prolene. This was a single layer repair. A sterile dressing was applied. The patient was advised to keep the dressing clean and dry. Patient tolerated the procedure well. Data Data Last Documented VS Vital Signs Date Time Temp Pulse Resp B/P (MAP) Pulse Ox O2 Delivery O2 Flow Rate FiO2 03/20/17 13:22 98.4 96 16 182/104 (130) 100 Orders Orders Complete Blood Count With Diff (03/20/17 14:16) Comprehensive Metabolic Panel (03/20/17 14:16) Urinalysis - C+S If Indicated (03/20/17 14:16) Psych Screen (03/20/17 14:16) Drug Screen, Random Urine (03/20/17 14:16) Alcohol (Ethanol) (03/20/17 14:16) Salicylates (Aspirin) (03/20/17 14:16) Tylenol (Acetaminophen) (03/20/17 14:16) Tetanus/Diphtheria Tox Adult (Tetanus/Di (03/20/17 14:30) Lidocaine 1% Inj (50 Ml) (Xylocaine 1% I (03/20/17 14:30) Labs Laboratory Tests Test 03/20/17 14:20 White Blood Count 10.8 TH/MM3 Red Blood Count 4.99 MIL/MM3 Hemoglobin 14.2 GM/DL Hematocrit 43.1 % Mean Corpuscular Volume 86.3 FL Mean Corpuscular Hemoglobin 28.4 PG Mean Corpuscular Hemoglobin Concent 32.9 % Red Cell Distribution Width 14.4 % Platelet Count 342 TH/MM3 Mean Platelet Volume 7.8 FL Neutrophils (%) (Auto) 86.2 % Lymphocytes (%) (Auto) 6.4 % Monocytes (%) (Auto) 6.8 % Eosinophils (%) (Auto) 0.3 % Basophils (%) (Auto) 0.3 % Neutrophils # (Auto) 9.3 TH/MM3 Lymphocytes # (Auto) 0.7 TH/MM3 Monocytes # (Auto) 0.7 TH/MM3 Eosinophils # (Auto) 0.0 TH/MM3 Basophils # (Auto) 0.0 TH/MM3 CBC Comment DIFF FINAL Differential Comment Blood Urea Nitrogen 22 MG/DL Creatinine 0.96 MG/DL Random Glucose 103 MG/DL Total Protein 8.2 GM/DL Albumin 3.3 GM/DL Calcium Level 8.6 MG/DL Alkaline Phosphatase 133 U/L Aspartate Amino Transf (AST/SGOT) 22 U/L Alanine Aminotransferase (ALT/SGPT) 34 U/L Total Bilirubin 0.6 MG/DL Sodium Level 131 MEQ/L Potassium Level 3.8 MEQ/L Chloride Level 93 MEQ/L Carbon Dioxide Level 29.4 MEQ/L Anion Gap 9 MEQ/L Estimat Glomerular Filtration Rate 77 ML/MIN Salicylates Level LESS THAN 1.7 MG/DL Acetaminophen Level LESS THAN 2.0 MCG/ML Ethyl Alcohol Level LESS THAN 3 MG/DL [facility] Medical Record Reviewed: Yes Supervised Visit with DEBBIE: Yes Maricel Garza Mar 20, 2017 16:12
[2017-03-20 16:55] LABS: BACTERIA, URINE MOD /hpf; BLOOD, URINE MOD (NEG); COMMENT (UR) CULTURE INDICATED; CULTURE IF INDICATED CULTURE INDICATED; GLUCOSE,URINE NEG (NEG); KETONE, URINE 10 mg/dL (NEG); MUCUS URINE FEW /lpf (OCC); NITRITE,URINE POS (NEG); URINE COLOR YELLOW (YELLW/STRAW)
[2017-03-20] MEDS ORDERED: CEPH-460 PO (17:27)
[2017-03-20] MEDS ORDERED: CIPR500T2 PO (17:27)
[2017-03-20] MEDS ORDERED: cefTRIAXone INJ 1,000 MG in SODIUM CHLORIDE 0.9% INJ 100 ML IV ONE (17:30)
[2017-03-20] MEDS ORDERED: DOCUSATE SODIUM 100 MG CAP PO ONE (17:30)
[2017-03-20] MEDS ORDERED: traMADol HCL 50 MG TAB PO ONE ×2 (17:30→23:30)
[2017-03-20 20:00] VITALS: BP 115/70; PULSE 94; RESP 15; TEMP 98.5; O2SAT 100
[2017-03-21 07:40] VITALS: BP 158/93; PULSE 91; O2SAT 97
[2017-03-21] MEDS ORDERED: ACETAMINOPHEN 325 MG TAB PO PRN (10:45)
[2017-03-21] MEDS ORDERED: MAGNESIUM HYDROXIDE SUSP 30 ML CUP PO PRN (10:45)
[2017-03-21] MEDS ORDERED: LORazepam 0.5 MG TAB PO PRN (10:45)
[2017-03-21] MEDS ORDERED: ALUMINUM/MAGNESIUM/SIMETH 30 ML CUP PO PRN (10:45)
[2017-03-21] MEDS ORDERED: LORazepam 2 MG/ML VIAL IM PRN (10:45)
--- NOTE | 2017-03-21 10:54 | HHI.HP ---
Provisional Diagnosis Admission Date [place] I. Major depression, severe, without psychotic features Certification of Person's Competence To Provide Express and Informed Consent I have personally examined Kirit Dubose , a person being served at [facility] on, Mar 21, 2017 10:42. Express and informed consent means consent voluntarily given in writing, by a competent person, after sufficient explanation and disclosure of the subject matter involved to enable the person to make a knowing and willful decision without any element of force, fraud, deceit, duress, or other form of constraint or coercion. This person is 18 years of age or older, is not now known to be incompetent to consent to treatment with a guardian advocate, and does not have a health care surrogate or proxy currently making medical treatment decisions. I have found this person to be one of the following: [x] Competent to provide express and informed consent, as defined above, for voluntary admission to this facility and is competent to provide express and informed consent for treatment. He/she has the consistent capacity to make well reasoned, willful, and knowing decisions concerning his or her medical or mental health treatment. The person fully and consistently understands the purpose of the admission for examination/placement and is fully capable of personally exercising all rights assured [place] Incompetent to provide express and informed consent to voluntary admission, and this is incompetent to provide express and informed consent to treatment. The person must be transferred to involuntary status and a petition for a guardian advocate filed with the Circuit Court. [] Refusing to provide express and informed consent to voluntary admission but is competent to provide express and informed consent for treatment. The person must be discharged or transferred to involuntary status. Form shall be completed within 24 hours of a person's arrival at the receiving facility and filed in the clinical record of each person: 1. Admitted on a voluntary basis 2. Permitted to provide express and informed consent to his/her own treatment 3. Allowed to transfer from involuntary to voluntary status 4. Prior to permitting a person to consent to his or her own treatment after having been previously found incompetent to consent to treatment. History of Present Illness Capacity: Has Capacity HPI 72-year-old male being admitted under a Amin act after a suicide attempt. According to the Amin act, the patient called his supervisor esters and emulsifiers and stated he did not want to live anymore. When the supervisor esters and emulsifiers arrived at his residence, she saw he had lacerated the inside of his left arm. Additionally, the patient had taped a DNR order to his bathroom mirror. Patient was Amin acted by law enforcement. Apparently the patient has chronic low back pain and bilateral lower leg pain with associated weakness. He reportedly could not stand the pain any longer. He was recently admitted to [facility] and left AGAINST MEDICAL ADVICE on March 14, 2017. The patient has a history of multiple medical problems including sciatica, neurogenic bladder with supra pubic catheter, anemia, coronary artery disease, and a history of being recently treated for urinary tract infection. He reportedly cut his left forearm with a piece of glass, requiring multiple sutures. Patient presents with multiple symptoms of depression including depressed mood, anhedonia, hopelessness and helplessness, suicidal ideation with attempt, diminished self-esteem, diminished energy, anxiety, insomnia, etc. There is some mention of dementia but this physician is unable to discern if the patient truly has dementia or pseudodementia related to depression. Patient does not have a history of alcohol or substance abuse. He has only a supervisor esters and emulsifiers for support and she comes only during the daytime. Review of Systems Except as stated in HPI: all other systems reviewed are Neg Musculoskeletal: COMPLAINS OF: Muscle aches, Back pain Past Psych History Psychological trauma history No known psychological trauma. Violence risk - others (6 mos) Minimal Violence risk - self (6 mos) High Substance Abuse History Drugs/Alcohol past 12 months Denied Past Family Social History Coded Allergies: *MDRO Multi-Drug Resistant Organism (Verified Adverse Reaction, Unknown, ) MRSA (urine) - 02/01/16, 02/12/2016 Active Scripts Cephalexin (Keflex) 500 Mg Capsule, 500 MG PO Q8H for Infection for 7 Days, CAP 0 Refills Prov:Ofelia Rosales 03/20/17 Ciprofloxacin (Ciprofloxacin) 500 Mg Tab, 500 MG PO BID for Infection, #10 TAB 0 Refills Prov:Ofelia Rosales 03/20/17 Misc. Devices (TUB TRANSFER BENCH) Device, 1 EA, #1 Prov:Yuridia Tate 01/28/16 Reported Medications Cyclobenzaprine (Flexeril) 10 Mg Tab, 10 MG PO BID Y for MUSCLE SPASM, #90 TAB 0 Refills 03/12/[address] (Aspirin EC) 81 Mg Tabdr, 81 MG PO DAILY, TAB 0 Refills 03/12/17 Pregabalin (Lyrica) 200 Mg Cap, 200 MG PO BID, #90 CAP 0 Refills 03/12/17 Sennosides (Senna Lax) 8.6 Mg Tab, 8.6 MG PO DAILY 03/12/17 Current Medications Medications (Trade) Dose Ordered Sig/Deloris Route Start Time Stop Time Status Last Admin (Ativan) 0.5 mg Q12H PRN PO 03/21/17 10:45 UNV (Ativan Inj) 0.5 mg Q12H PRN IM 03/21/17 10:45 UNV (Tylenol) 650 mg Q4H PRN PO 03/21/17 10:45 UNV (Milk Of Magnesia Liq) 30 ml DAILY PRN PO 03/21/17 10:45 UNV (Mag-Al Plus Susp Liq) 30 ml Q6H PRN PO 03/21/17 10:45 UNV Family History Positive for mood and anxiety disorders. Social History Lives alone. Retired. Has a supervisor esters and emulsifiers for support that sees him during the daytime. Denies alcohol use or illicit drug use. Patient's Strengths (min. 2) Verbal and has access to healthcare. Physical Exam GENERAL: SKIN: Warm and dry. HEAD: Normocephalic. EYES: No scleral icterus. No injection or drainage. NECK: Supple, trachea midline. No JVD or lymphadenopathy. CARDIOVASCULAR: Regular rate and rhythm without murmurs, gallops, or rubs. RESPIRATORY: Breath sounds equal bilaterally. No accessory muscle use. GASTROINTESTINAL: Abdomen soft, non-tender, nondistended. MUSCULOSKELETAL: No cyanosis, or edema. BACK: Nontender without obvious deformity. No CVA tenderness. Vital Signs Vital Signs Date Time Temp Pulse Resp B/P (MAP) Pulse Ox O2 Delivery O2 Flow Rate FiO2 03/21/17 07:40 91 158/93 (114) 97 Room Air 03/20/17 20:00 98.5 15 Lab Results Test 03/20/17 14:20 03/20/17 16:15 White Blood Count 10.8 TH/MM3 Red Blood Count 4.99 MIL/MM3 Hemoglobin 14.2 GM/DL Hematocrit 43.1 % Mean Corpuscular Volume 86.3 FL Mean Corpuscular Hemoglobin 28.4 PG Mean Corpuscular Hemoglobin Concent 32.9 % Red Cell Distribution Width 14.4 % Platelet Count 342 TH/MM3 Mean Platelet Volume 7.8 FL Neutrophils (%) (Auto) 86.2 % Lymphocytes (%) (Auto) 6.4 % Monocytes (%) (Auto) 6.8 % Eosinophils (%) (Auto) 0.3 % Basophils (%) (Auto) 0.3 % Neutrophils # (Auto) 9.3 TH/MM3 Lymphocytes # (Auto) 0.7 TH/MM3 Monocytes # (Auto) 0.7 TH/MM3 Eosinophils # (Auto) 0.0 TH/MM3 Basophils # (Auto) 0.0 TH/MM3 CBC Comment DIFF FINAL Differential Comment Blood Urea Nitrogen 22 MG/DL Creatinine 0.96 MG/DL Random Glucose 103 MG/DL Total Protein 8.2 GM/DL Albumin 3.3 GM/DL Calcium Level 8.6 MG/DL Alkaline Phosphatase 133 U/L Aspartate Amino Transf (AST/SGOT) 22 U/L Alanine Aminotransferase (ALT/SGPT) 34 U/L Total Bilirubin 0.6 MG/DL Sodium Level 131 MEQ/L Potassium Level 3.8 MEQ/L Chloride Level 93 MEQ/L Carbon Dioxide Level 29.4 MEQ/L Anion Gap 9 MEQ/L Estimat Glomerular Filtration Rate 77 ML/MIN Salicylates Level LESS THAN 1.7 MG/DL Acetaminophen Level LESS THAN 2.0 MCG/ML Ethyl Alcohol Level LESS THAN 3 MG/DL Urine Color YELLOW Urine Turbidity CLOUDY Urine pH 6.0 Urine Specific [place] 1.022 Urine Protein 30 mg/dL Urine Glucose (UA) NEG mg/dL Urine Ketones 10 mg/dL Urine Occult Blood MOD Urine Nitrite POS Urine Bilirubin NEG Urine Urobilinogen LESS THAN 2.0 MG/DL Urine Leukocyte Esterase LARGE Urine RBC 129 /hpf Urine WBC /hpf Urine Amorphous Sediment RARE Urine Bacteria MOD /hpf Urine Mucus FEW /lpf Microscopic Urinalysis Comment CULTURE INDICATED Urine Opiates Screen NEG Urine Barbiturates Screen NEG Urine Amphetamines Screen NEG Urine Benzodiazepines Screen NEG Urine Cocaine Screen NEG Urine Cannabinoids Screen NEG Date/Time Source Procedure Growth Status 03/20/17 16:15 Urine Random Urine Urine Culture Pending Worksheet Mental Status Examination Speech: Unremarkable Orientation: x3 Memory: Unremarkable Thought Process: Organized, Goal Directed Thought Content: Unremarkable Hallucination Type: None Attention and Concentration: Good Suicidal Ideation: Yes Previous Suicide Attempts: Yes Homicidal Ideation: No Previous Homicide Attempts: No Insight: Fair Judgment: Unrealistic Affect: Sad Mood: Sad Motor Activity: Normal gait Assessment & Plan Problem List: (1) Severe major depression, single episode, without psychotic features ICD Codes: F32.2 - Major depressive disorder, single episode, severe without psychotic features Status: Acute Assessment & Plan Estimated LOS: days. Patient considered to be at very high risk for self- harm. He is therefore being admitted for evaluation and treatment. He has minimal support system, multiple medical problems, advanced age, chronic pain, and recent suicide attempt. This physician has ordered a CBC and comprehensive metabolic profile to determine if any infectious process or metabolic process is causing or contributing to his depression. Additionally, patient will have a thyroid stimulating hormone, vitamin B-12 and vitamin D levels obtained to determine if any deficiencies and thyroid function or vitamin deficiencies are causing or contributing to his depression. Patient will also undergo a EKG to determine his cardiac conduction status as if he has a history of cardiac issues and psychotropic medications may alter his conduction status. Occupational therapy consult was also ordered to determine his functionality. This physician ordered a hospitalist consult to assist with evaluating and treating his multiple medical issues. This physician spoke to the patient's nurse regarding his current state of depression. Finally, social science professor/case management will be involved to gather further information and assist with disposition planning. Alan Lang MD Mar 21, 2017 10:54
[2017-03-21] MEDS ORDERED: CEPHALEXIN MONOHYDRATE 500 MG CAP PO SCH (13:00)
[2017-03-21 13:23] VITALS: BP 151/80; PULSE 85; RESP 19; O2SAT 100
[2017-03-21 16:36] VITALS: BP 127/84; PULSE 102; RESP 16; TEMP 97.9; O2SAT 99
--- NOTE | 2017-03-21 17:25 | PD.CONS ---
HPI Service [facility] Hospitalists Consult Requested By Dr. Lang Reason for Consult Medical management Primary Care Physician [facility] Diagnoses: (1) Depression (2) Suicidal ideation (3) UTI (lower urinary tract infection) History of Present Illness Written by Maricel Barger, acting as scribe for Dr. Mcduffie on 03/21/17 at 16:45. Mr. Dubose is a 72-year-old male patient with a known depression, dementia, chronic back pain, anemia, CAD, hyperlipidemia and neurogenic bladder who presented to the ED with suicidal ideations and bilateral AC lacerations. Hospitalist team consulted for medical management. Patient states he was at home today when a glass fell, shattering to the floor. He states it was an unusual time where he was in a tremendous amount of pain, stemming from his chronic neck and back pain when he took a piece of the glass and attempted to sever his bilateral AC arteries. He states this was very unlike his usual state of mind and he was very depressed. At this time he denies any suicidal ideation or plan and does not know why he would attempt such a thing. Denies any recent illness including fever, chills. cough, shortness of breath, headache, ab pain, n/v or dysuria. Does state he suffers from constipation and recently been taking stool softeners and believes it has made his now too loose. Patient suffers from chronic back pain, has recently weaned from all opioids and just takes Tramadol for the pain which seems to help. Patient is wheelchair bound and does not ambulate. Complaints of bilateral lower extremity weakness, PVD and left lateral and medial ankle wounds. Being seen in the outpatient setting by Dr. Wagoner who has been managing his wounds. Review of Systems Constitutional: DENIES: Fever, Dizziness Respiratory: DENIES: Cough, Shortness of breath Cardiovascular: DENIES: Chest pain, Dyspnea on Exertion Gastrointestinal: DENIES: Abdominal pain, Constipation, Diarrhea, Nausea Psychiatric: COMPLAINS OF: Mood changes, Depression, Suicidal Ideation Except as stated in HPI: all other systems reviewed are Neg Past Family Social History Allergies: Coded Allergies: *MDRO Multi-Drug Resistant Organism (Verified Adverse Reaction, Unknown, ) MRSA (urine) - 02/01/16, 02/12/2016 Past Medical History Chronic back pain Bilateral lower extremity weakness Dementia Anemia CAD CABG Hyperlipidemia Neurogenic bladder Past Surgical History Suprapubic catheter Jaw wired CABG '05 Reported Medications Active Keflex (Cephalexin) 500 Mg Capsule 500 Mg PO Q8H 7 Days Ciprofloxacin (Ciprofloxacin HCl) 500 Mg Tab 500 Mg PO BID Tub Transfer Bench (Device) Device 1 Ea Reported Flexeril (Cyclobenzaprine HCl) 10 Mg Tab 10 Mg PO BID PRN Aspirin EC (Aspirin) 81 Mg Tabdr 81 Mg PO DAILY Lyrica (Pregabalin) 200 Mg Cap 200 Mg PO BID Senna Lax (Sennosides) 8.6 Mg Tab 8.6 Mg PO DAILY Active Ordered Medications Current Medications Medications (Trade) Dose Ordered Sig/Deloris Route Start Time Stop Time Status Last Admin (Ativan) 0.5 mg Q12H PRN PO 03/21/17 10:45 (Ativan Inj) 0.5 mg Q12H PRN IM 03/21/17 10:45 (Tylenol) 650 mg Q4H PRN PO 03/21/17 10:45 (Milk Of Magnesia Liq) 30 ml DAILY PRN PO 03/21/17 10:45 (Mag-Al Plus Susp Liq) 30 ml Q6H PRN PO 03/21/17 10:45 (Ecotrin Ec) 81 mg DAILY PO 03/22/17 09:00 (Keflex) 500 mg Q8HR PO 03/21/17 13:00 03/21/17 13:17 (Cipro) 500 mg BID PO 03/21/17 21:00 (Flexeril) 10 mg BID PRN PO 03/21/17 10:45 (Lyrica) 200 mg BID PO 03/21/17 21:00 (Senokot) 8.6 mg DAILY PO 03/22/17 09:00 Family History Maternal medical history significant for cardiovascular disease. Paternal medical history significant for alcoholism, kidney and liver failure. Social History Denies any current tobacco use, alcohol or illicit drug use. Physical Exam Vital Signs Vital Signs Date Time Temp Pulse Resp B/P (MAP) Pulse Ox O2 Delivery O2 Flow Rate FiO2 03/21/17 16:36 97.9 102 16 127/84 (98) 99 03/21/17 16:11 03/21/17 13:23 85 19 151/80 (103) 100 Room Air 03/21/17 07:40 91 158/93 (114) 97 Room Air 03/20/17 20:00 98.5 94 15 115/70 (85) 100 Room Air Physical Exam GENERAL: This is a well-nourished, well-developed male patient, sitting up in chair in no apparent distress. SKIN: No rashes. Warm and dry. HEENT: Atraumatic. Normocephalic. Pupils equal round and reactive. Extraocular motions intact. No scleral icterus. No injection or drainage. Nose without bleeding. Airway patent. NECK: Trachea midline. No JVD. Supple. CARDIOVASCULAR: Regular rate and rhythm without murmurs, gallops, or rubs. RESPIRATORY: Clear to auscultation. Breath sounds equal bilaterally. No wheezes , rales, or rhonchi. GASTROINTESTINAL: Abdomen soft, non-tender, nondistended. No guarding. : Suprapubic catheter noted. MUSCULOSKELETAL: Extremities without clubbing, cyanosis, or edema. No joint tenderness, effusion, or edema noted. Bilateral lower extremity erythema, dry skin noted, with left lateral and medial wounds noted. NEUROLOGICAL: Awake and alert. Cranial nerves II through XII intact. Motor and sensory grossly within normal limits. Five out of 5 muscle strength in all muscle groups. Normal speech. Laboratory Date/Time Source Procedure Growth Status 03/20/17 16:15 Urine Random Urine Urine Culture - Preliminary Pseudomonas Species Resulted Result Diagram: 03/20/17 1420 03/20/17 1420 Assessment and Plan Assessment and Plan Mr. Dubose is a 72-year-old male patient with a known depression, dementia, chronic back pain, anemia, CAD, hyperlipidemia and neurogenic bladder who presented to the ED with suicidal ideations. Hospitalist team consulted for medical management. Depression with suicidal ideation History of dementia - Management per psychiatry team. Neurogenic bladder presence of suprapubic catheter Urinary tract infection - UA showing large amount of leukocyte esterase and innumerable WBCs. Urine culture showing pseudomonas. Awaiting MANAV, follow. - Given Rocephin IV x 1 in Ed. - Continue ciprofloxacin 500 mg PO BID. - Primary team placed consult to urology for draining suprapubic catheter. Hypertension: Mildly elevated, systolic in the 150's, possibly pain related. Monitor BP. Constipation, chronic: Senna PO daily. Milk of magnesium PRN available. Chronic back pain: Continue home Flexeril and Lyrica. Will restart tramadol. Left ankle lateral and medial wound: Consult placed to wound care, appreciate input. Wound cultures ordered. Bacitracin for now. DVT prophylaxis: This note was transcribed by roma MENDOZA . I, Dr. Hortensia Mcduffie personally performed the history, physical exam, and medical decision making; and confirmed the accuracy of the information in the transcribed note. Authenticated by Dr. Hortensia Mcduffie on 03/21/17 at 16:45. Problem Qualifiers (1) Depression: Qualified Codes: F32.9 - Major depressive disorder, single episode, unspecified Maricel Barger Mar 21, 2017 17:25 Hortensia Mcduffie MD Mar 21, 2017 17:44
[2017-03-21] MEDS ORDERED: LACTOBACILLUS ACIDOPHILUS TAB PO ONE (17:45)
[2017-03-21] MEDS: traMADol HCL 50 MG TAB PO PRN (17:52)
[2017-03-21] MEDS: CYCLOBENZAPRINE HCL 10 MG TAB PO PRN ×2 (17:52→20:42)
[2017-03-21] MEDS: CIPROFLOXACIN 500 MG TAB PO SCH (20:43)
[2017-03-21] MEDS: PREGABALIN 100 MG CAP PO SCH ×2 (21:00→22:35)
[2017-03-21] MEDS: BACITRACIN TOP OINT 15 GM TUBE TOPICAL SCH (21:00)
[2017-03-22] MEDS: traMADol HCL 50 MG TAB PO PRN ×2 (00:28→10:18)
[2017-03-22 06:44] VITALS: BP 145/90; PULSE 94; RESP 19; TEMP 98; O2SAT 100
--- NOTE | 2017-03-22 08:01 | EKG ---
Date Performed: 03/21/2017 Time Performed: 11:51:31 PTAGE: 72 years EKG: Sinus rhythm WITH SINUS ARRHYTHMIA POSSIBLE LEFT ATRIAL ENLARGEMENT INCOMPLETE RIGHT BUNDLE BRANCH BLOCK POSSIBLE LEFT VENTRICULAR HYPERTROPHY NONSPECIFIC T-WAVE ABNORMALITY ABNORMAL ECG PREVIOUS TRACING : 08/13/2013 00.32 Compared to the previous tracing [facility] present DOCTOR: Sherman Zayas Interpretating Date/Time 03/22/2017 08:00:55
[2017-03-22] MEDS: BACITRACIN TOP OINT 15 GM TUBE TOPICAL SCH ×3 (09:00→22:17)
--- NOTE | 2017-03-22 09:30 | HHI.PR ---
Subjective Remarks Complaints of pain in his belly, says he had ileus before. Says he has some diarrhea but feels his belly distended and constipated. No nausea or vomiting. Has diffuse abd pain. No fever or chills. Objective Vitals Vital Signs Date Time Temp Pulse Resp B/P (MAP) Pulse Ox O2 Delivery O2 Flow Rate FiO2 03/22/17 06:44 98.0 94 19 145/90 (108) 100 03/21/17 16:36 97.9 102 16 127/84 (98) 99 03/21/17 16:11 03/21/17 13:23 85 19 151/80 (103) 100 Room Air I/O 03/21/17 03/21/17 03/21/17 03/22/17 03/22/17 03/22/17 07:00 15:00 23:00 07:00 15:00 23:00 Intake Total 360 ml 720 ml Output Total 1300 ml 500 ml Balance -1300 ml -140 ml 720 ml Intake Oral 360 ml 720 ml Output Urine Total 1300 ml 500 ml # Voids 0 # Bowel Movements 1 1 Result Diagram: 03/20/17 1420 03/20/17 1420 Objective Remarks GENERAL: This is a well-nourished, well-developed male patient, sitting up in chair in no apparent distress. SKIN: No rashes. Warm and dry. HEENT: Atraumatic. Normocephalic. Pupils equal round and reactive. Extraocular motions intact. No scleral icterus. No injection or drainage. Nose without bleeding. Airway patent. NECK: Trachea midline. No JVD. Supple. CARDIOVASCULAR: Regular rate and rhythm without murmurs, gallops, or rubs. RESPIRATORY: Clear to auscultation. Breath sounds equal bilaterally. No wheezes , rales, or rhonchi. GASTROINTESTINAL: Abdomen soft, non-tender, nondistended. No guarding. : Suprapubic catheter noted. MUSCULOSKELETAL: Extremities without clubbing, cyanosis, or edema. No joint tenderness, effusion, or edema noted. Bilateral lower extremity erythema, dry skin noted, with left lateral and medial wounds noted. NEUROLOGICAL: Awake and alert. Cranial nerves II through XII intact. Motor and sensory grossly within normal limits. Five out of 5 muscle strength in all muscle groups. Normal speech. A/P Problem List: (1) Depression ICD Code: F32.9 - Major depressive disorder, single episode, unspecified Status: Acute (2) Suicidal ideation ICD Code: R45.851 - Suicidal ideations Status: Acute (3) UTI (lower urinary tract infection) ICD Code: N39.0 - Lower urinary tract infectious disease Status: Acute Assessment and Plan Mr. Dubose is a 72-year-old male patient with a known depression, dementia, chronic back pain, anemia, CAD, hyperlipidemia and neurogenic bladder who presented to the ED with suicidal ideations. Hospitalist team consulted for medical management. Depression with suicidal ideation History of dementia - Management per psychiatry team. Abdominal pain, diarrhea. Will do CT scan abd.pelvis. Antiemetics as need. Hols laxatives. Neurogenic bladder presence of suprapubic catheter Urinary tract infection - UA showing large amount of leukocyte esterase and innumerable WBCs. Urine culture showing pseudomonas. Awaiting MANAV, follow. - Given Rocephin IV x 1 in Ed. - Continue ciprofloxacin 500 mg PO BID. - Primary team placed consult to urology for draining suprapubic catheter. Urology was also consulted started oxybutinin, to follow up as OP with urology Hypertension: Mildly elevated, systolic in the 150's, possibly pain related. Monitor BP. Constipation, chronic: Senna PO daily. Milk of magnesium PRN available. Chronic back pain: Continue home Flexeril and Lyrica. Will restart tramadol. Left ankle lateral and medial wound: Consult placed to wound care, appreciate input. Wound cultures ordered. Bacitracin for now. DVT prophylaxis: Discussed with the patient,. nurse Monroe for CT scan , patient is not able to tolerate contrast and will do modified CT Problem Qualifiers (1) Depression: Qualified Codes: F32.9 - Major depressive disorder, single episode, unspecified Hortensia Mcduffie MD Mar 22, 2017 09:30
[2017-03-22] MEDS: SENNOSIDES 8.6 MG TAB PO SCH (09:40)
[2017-03-22] MEDS: LACTOBACILLUS ACIDOPHILUS TAB PO SCH ×2 (09:40→22:16)
[2017-03-22] MEDS: CIPROFLOXACIN 500 MG TAB PO SCH ×2 (09:40→22:16)
[2017-03-22] MEDS: ASPIRIN EC 81 MG TABEC PO SCH (09:40)
[2017-03-22] MEDS: PREGABALIN 100 MG CAP PO SCH ×2 (09:40→22:16)
--- NOTE | 2017-03-22 14:20 | HHI.PR ---
Subjective Patient symptoms today -Patient with evidence of UTI and leaking Suprapubic tube -Recommend exchange SPT -Continue antibiotics -May start oxybutynin 5mg TID to help with bladder spasms/catheter leakage -No other urological intervention indicated at this time -Patient may follow-up with Urology in clinic -Please call with questions Objective Result Diagram: 03/20/17 1420 03/20/171419 Assessment and Plan Problem List: (1) Bacteriuria ICD Code: N39.0 - Urinary tract infection, site not specified Status: Acute (2) UTI (lower urinary tract infection) ICD Code: N39.0 - Lower urinary tract infectious disease Status: Acute Edilberto Astudillo MD Mar 22, 2017 14:20
--- NOTE | 2017-03-22 15:11 | HHI.PYPN ---
Subjective Remarks Patient seen in his room with floor staff. Alert oriented calm cooperative though minimizing the extent of his suicide attempt. Also some minimization of the severity and chronicity of his multiple medical issues and now it is affecting his entire life. He does denies suicidality at this time. Patient initially seen with Dr. Alan Lang who dictated initial psych evaluation giving demand capacity to sign voluntary. However the patient was initially admitted under the Amin act. At this time I will follow Dr. Lang's recommendation. At this time also patient has significant medical issues that can be better addressed and treated on our [facility] unit on 4 E. Patient transferred to bed for 6 a. His care be transferred to Dr. Culver Review of Systems Except as stated in HPI: all other systems reviewed are Neg Objective Alert: Yes [place]: Person, Place, Date, Situation Mood: Calm, Depressed Affect: Other (good range intensity) Memory Intact: Comment (they are) Hallucinations: Other (denies) Delusions: No Delusion Type: Other (moderately vigilant) Suicidal: Ideation (denies at this time though the suicide attempt was significant) Homicidal: Ideation Insight/Judgment Poor Labs Date/Time Source Procedure Growth Status 03/20/17 16:15 Urine Random Urine Urine Culture - Final Pseudomonas Aeruginosa Complete Vitals/IOs Vital Signs Date Time Temp Pulse Resp B/P (MAP) Pulse Ox O2 Delivery O2 Flow Rate FiO2 03/22/17 06:44 98.0 94 19 145/90 (108) 100 03/21/17 13:23 Room Air Intake and Output 03/22/17 03/22/17 03/23/17 08:00 16:00 00:00 Intake Total 360 ml 1440 ml Output Total 500 ml Balance -140 ml 1440 ml Assessment & Plan Problem List: (1) Severe major depression, single episode, without psychotic features ICD Codes: F32.2 - Major depressive disorder, single episode, severe without psychotic features Status: Acute Assessment & Plan Estimated LOS: days patient remains depressed. As for to 4 E. to bed 406a Justification for Cont. Inpt. At this time patient will decompensate the placed a lower level of care Discharge Planning To be determined Request HC Surrog/Guard Advoc?: No Francesco Caro MD Mar 22, 2017 15:11
--- NOTE | 2017-03-22 16:19 | PD.WCN.NOT ---
Wound Consult Description: Received consult on patient from Maricel MENDOZA regarding wound management of L medial and L lateral foot wounds managed by Doctor Ciaran anne patient Communicated with: RN Tianna Ham and REJI Barger Recommendation: Please cleanse wounds to L medial ankle and L lateral ankle with wound cleanser or normal saline and pat dry. Apply small piece of calcium alginate (Maxorb II) dressing over wound beds. Cover with dry 4x4 gauze pads. Secure dressings with rolled gauze and tape. Change dressings every other day or as needed for saturation of dislodgement. Additional Information: Patient seen on [address] [place] [id number] unit for evaluation of wound management of L medial ankle and L lateral ankle. BLE present with dusky discoloration,hairless and dry skin. Pedal pulses are weak. Patient is noted sitting in chair with BLE elevated . Wounds to L medial ankle and L lateral ankle are open to air and appear to have minimal active drainage with moist wound beds, without odor. Wound margins of both wounds are present as steep with punched out appearance. Wounds are presenting like arterial ulcers. L medial ankle wound measures 2 cm x 5 cm x ~0.2 cm . Wound bed presents with ~ 40% dark red tissue, ~10% yellow tissue and ~50% pink tissue. wound margins also presents with dark red crust circumferentially Periwound is noted maceration between 7 and 11 o'clock and is without induration or erythema. L lateral ankle wound measures 1cm x 1.8 cm x ~0.2cm. Wound bed presents with ~ 80% pink tissue and ~20% dark red tissue. Wound margins also present with dark red crust. Periwound noted with some maceration between 5 and 7 o'clock and without induration or erythema. Cleansed wounds to L medial and L lateral ankle with normal saline before applying Maxorb extra AG (calcium alginate AG) to wound beds and covering with dry 4x4 gauze pads. Secured dressing with rolled gauze and tape. Maxorb II ( Calcium alginate) is what is recommended for patient only had Maxorb extra AG on hand for this dressing application. Francie Santos [facility] Mar 22, 2017 16:19
[2017-03-22 18:31] VITALS: BP 133/68; PULSE 87; RESP 17; TEMP 97.3; O2SAT 97
--- NOTE | 2017-03-22 20:54 | EKG ---
Date Performed: 03/22/2017 Time Performed: 07:11:29 PTAGE: 72 years EKG: Sinus rhythm WITH OCCASIONAL SUPRAVENTRICULAR PREMATURE COMPLEXES POSSIBLE LEFT ATRIAL ENLARGEMENT POSSIBLE RIGHT VENTRICULAR CONDUCTION DELAY POSSIBLE LEFT VENTRICULAR HYPERTROPHY ABNORMAL ECG PREVIOUS TRACING : 03/21/2017 11.51 Compared to prior tracing no significant change DOCTOR: Alan Lyn Interpretating Date/Time 03/22/2017 20:54:00
[2017-03-22] MEDS: ACETAMINOPHEN/HYDROcodone 325 MG/5 MG TAB PO PRN (22:00)
[2017-03-23] MEDS: traMADol HCL 50 MG TAB PO PRN ×3 (03:39→18:18)
[2017-03-23] MEDS: CYCLOBENZAPRINE HCL 10 MG TAB PO PRN (03:39)
[2017-03-23 05:40] VITALS: BP 127/59; PULSE 83; RESP 15; TEMP 98.4; O2SAT 99
[2017-03-23] MEDS: BACITRACIN TOP OINT 15 GM TUBE TOPICAL SCH ×2 (07:25→21:33)
[2017-03-23] MEDS: ACETAMINOPHEN/HYDROcodone 325 MG/5 MG TAB PO PRN ×3 (08:12→21:43)
[2017-03-23] MEDS: CIPROFLOXACIN 500 MG TAB PO SCH ×2 (08:12→21:32)
[2017-03-23] MEDS: PREGABALIN 100 MG CAP PO SCH ×2 (08:12→21:32)
[2017-03-23] MEDS: ASPIRIN EC 81 MG TABEC PO SCH (08:12)
[2017-03-23] MEDS: SENNOSIDES 8.6 MG TAB PO SCH (08:12)
[2017-03-23] MEDS: LACTOBACILLUS ACIDOPHILUS TAB PO SCH ×2 (08:12→21:32)
--- NOTE | 2017-03-23 09:07 | HHI.PR ---
Subjective Remarks In bed says he had a BM less diarrhea , still with some diffuse abdominal pain. No fever or chills. Was seen by wound care yesterday. Eating fairly well. No nausea or vomiting. Objective Vitals Vital Signs Date Time Temp Pulse Resp B/P (MAP) Pulse Ox O2 Delivery O2 Flow Rate FiO2 03/23/17 05:40 98.4 83 15 127/59 (81) 99 03/22/17 18:31 97.3 87 17 133/68 (89) 97 I/O 03/22/17 03/22/17 03/22/17 03/23/17 03/23/17 03/23/17 07:00 15:00 23:00 07:00 15:00 23:00 Intake Total 360 ml 1440 ml 720 ml 240 ml Output Total 500 ml 800 ml 1100 ml Balance -140 ml 1440 ml -80 ml -860 ml Intake Oral 360 ml 1440 ml 720 ml 240 ml Output Urine Total 500 ml 800 ml 1100 ml Result Diagram: 03/20/17 1420 03/20/17 1420 Objective Remarks GENERAL: This is a well-nourished, well-developed male patient, sitting up in chair in no apparent distress. SKIN: No rashes. Warm and dry. HEENT: Atraumatic. Normocephalic. Pupils equal round and reactive. Extraocular motions intact. No scleral icterus. No injection or drainage. Nose without bleeding. Airway patent. NECK: Trachea midline. No JVD. Supple. CARDIOVASCULAR: Regular rate and rhythm without murmurs, gallops, or rubs. RESPIRATORY: Clear to auscultation. Breath sounds equal bilaterally. No wheezes , rales, or rhonchi. GASTROINTESTINAL: Abdomen soft, non-tender, nondistended. No guarding. : Suprapubic catheter noted. MUSCULOSKELETAL: Extremities without clubbing, cyanosis, or edema. No joint tenderness, effusion, or edema noted. Bilateral lower extremity erythema, dry skin noted, with left lateral and medial wounds noted. NEUROLOGICAL: Awake and alert. Cranial nerves II through XII intact. Motor and sensory grossly within normal limits. Five out of 5 muscle strength in all muscle groups. Normal speech. A/P Problem List: (1) Depression ICD Code: F32.9 - Major depressive disorder, single episode, unspecified Status: Acute (2) Suicidal ideation ICD Code: R45.851 - Suicidal ideations Status: Acute (3) UTI (lower urinary tract infection) ICD Code: N39.0 - Lower urinary tract infectious disease Status: Acute Assessment and Plan Mr. Dubose is a 72-year-old male patient with a known depression, dementia, chronic back pain, anemia, CAD, hyperlipidemia and neurogenic bladder who presented to the ED with suicidal ideations. Hospitalist team consulted for medical management. Depression with suicidal ideation History of dementia - Management per psychiatry team. Diffuse Abdominal pain, diarrhea. Improving. Will do CT scan abd.pelvis. Antiemetics as need. Hold laxatives. ct was not done. Restart home pain meds, add norco for breakthrough pain. Neurogenic bladder presence of suprapubic catheter Urinary tract infection - UA showing large amount of leukocyte esterase and innumerable WBCs. Urine culture showing pseudomonas. Awaiting MANAV, follow. - Given Rocephin IV x 1 in Ed. - Continue ciprofloxacin 500 mg PO BID. - Primary team placed consult to urology for draining suprapubic catheter. Urology was also consulted started oxybutinin, to follow up as OP with urology Hypertension: Mildly elevated, systolic in the 150's, possibly pain related. Monitor BP. Constipation, chronic: Senna PO daily. Milk of magnesium PRN available. Chronic back pain: Continue home Flexeril and Lyrica. Will restart tramadol. Left ankle lateral and medial wound: Consult placed to wound care, appreciate input. Wound cultures ordered. Bacitracin for now. DVT prophylaxis: Discussed with the patient,. nurse Monroe for CT scan , patient is not able to tolerate contrast and will do modified CT Problem Qualifiers (1) Depression: Qualified Codes: F32.9 - Major depressive disorder, single episode, unspecified Hortensia Mcduffie MD Mar 23, 2017 09:07
[2017-03-23 09:40] LABS: AUTOMATED NEUTROPHIL # 7.1 TH/MM3 (1.8-7.7); BASOPHIL # 0.1 TH/MM3 (0-0.2); BASOPHIL % 0.7 % (0.0-2.0); EOSINOPHIL # 0.3 TH/MM3 (0-0.4); EOSINOPHIL % 2.8 % (0.0-4.0); HEMATOCRIT 46.4 % (39.0-51.0); HEMO FLAGS DIFF FINAL; LYMPH % 18.6 % (9.0-44.0); LYMPHOCYTE # 1.9 TH/MM3 (1.0-4.8); MEAN CELL VOLUME 87.4 FL (80.0-100.0); MEAN CORPUSCULAR HEMOGLOBIN 29.1 PG (27.0-34.0); MEAN CORPUSCULAR HGB CONC 33.2 % (32.0-36.0); MONO % 6.7 % (0.0-8.0); NEUT % 71.2 % (16.0-70.0); PLATELET COUNT 292 TH/MM3 (150-450); RED BLOOD COUNT 5.31 MIL/MM3 (4.50-5.90); RED CELL DISTRIBUTION WIDTH 14.7 % (11.6-17.2)
[2017-03-23 10:15] LABS: ALKALINE PHOSPHATASE 123 U/L (45-117); ALT (GPT) 25 U/L (12-78); HDL CHOLESTEROL 48.4 MG/DL (40.0-60.0); LDL CHOLESTEROL 61 MG/DL (0-99); TOTAL BILIRUBIN ADULT 0.2 MG/DL (0.2-1.0)
[2017-03-23 10:16] LABS: ANION GAP 8 MEQ/L (5-15); AST (GOT) 21 U/L (15-37); BLOOD UREA NITROGEN 17 MG/DL (7-18); CHLORIDE 96 MEQ/L (98-107); GLOMERULAR FILTRATION RATE 115 ML/MIN (>89); POTASSIUM 3.6 MEQ/L (3.5-5.1); SODIUM (NA) 131 MEQ/L (136-145)
[2017-03-23 14:11] LABS: HEMOGLOBIN A1a 0.5 %; HEMOGLOBIN A1b 1.6 %; HEMOGLOBIN Ao 86.7 %; HEMOGLOBIN LA1C 1.8 %; HEMOGLOBIN P3 3.5 %
[2017-03-23] MEDS: DULoxetine HCl DR 20 MG CAP PO SCH (14:15)
--- NOTE | 2017-03-23 14:17 | HHI.PYPN ---
Subjective Remarks Patient was seen today for psychiatric reevaluation along with nurse in charge Aparna, patient reports feeling better today, but he says that in the last days he has been feeling very depressed, hopeless, with increased pessimism, increased sense of worthlessness, no enjoying his usual activities, with decreased concentration and energy, helplessness "mostly due to my underlying medical problems and pain". Patient reports poor sleep at night. He says that he doesn't understand how he got to the point that he cut himself. At this moment patient reports suicidal thoughts, but no plan, he denies homicidal ideation, he denies visual and auditory hallucinations. Patient is fully oriented 3, no attention deficit, no fluctuation of consciousness. Patient has been compliant with his medications,and difficult side effects. Review of Systems Other No somatic complaints at this moment Objective Alert: Yes [place]: Person, Place, Date, Situation Mood: Calm, Depressed Affect: Restricted Memory Intact: Immediate, Recent, Remote, Comment Hallucinations: Other (denies) Delusions: No Delusion Type: Other (moderately vigilant) Suicidal: Ideation (suicidal thoughts, but not plan) Homicidal: Ideation Insight/Judgment Poor Labs Test 03/23/17 08:43 White Blood Count 10.0 TH/MM3 Red Blood Count 5.31 MIL/MM3 Hemoglobin 15.4 GM/DL Hematocrit 46.4 % Mean Corpuscular Volume 87.4 FL Mean Corpuscular Hemoglobin 29.1 PG Mean Corpuscular Hemoglobin Concent 33.2 % Red Cell Distribution Width 14.7 % Platelet Count 292 TH/MM3 Mean Platelet Volume 7.6 FL Neutrophils (%) (Auto) 71.2 % Lymphocytes (%) (Auto) 18.6 % Monocytes (%) (Auto) 6.7 % Eosinophils (%) (Auto) 2.8 % Basophils (%) (Auto) 0.7 % Neutrophils # (Auto) 7.1 TH/MM3 Lymphocytes # (Auto) 1.9 TH/MM3 Monocytes # (Auto) 0.7 TH/MM3 Eosinophils # (Auto) 0.3 TH/MM3 Basophils # (Auto) 0.1 TH/MM3 CBC Comment DIFF FINAL Differential Comment Blood Urea Nitrogen 17 MG/DL Creatinine 0.68 MG/DL Random Glucose 59 MG/DL Total Protein 7.3 GM/DL Albumin 2.9 GM/DL Calcium Level 8.8 MG/DL Alkaline Phosphatase 123 U/L Aspartate Amino Transf (AST/SGOT) 21 U/L Alanine Aminotransferase (ALT/SGPT) 25 U/L Total Bilirubin 0.2 MG/DL Sodium Level 131 MEQ/L Potassium Level 3.6 MEQ/L Chloride Level 96 MEQ/L Carbon Dioxide Level 27.0 MEQ/L Anion Gap 8 MEQ/L Estimat Glomerular Filtration Rate 115 ML/MIN Triglycerides Level 94 MG/DL Cholesterol Level 128 MG/DL LDL Cholesterol 61 MG/DL HDL Cholesterol 48.4 MG/DL Cholesterol/HDL Ratio 2.64 RATIO Vitamin B12 Level 455 PG/ML 25-Hydroxy Vitamin D Total 43.5 ng/ML Thyroid Stimulating Hormone 3rd Gen 1.670 uIU/ML Date/Time Source Procedure Growth Status 03/20/17 16:15 Urine Random Urine Urine Culture - Final Pseudomonas Aeruginosa Complete Vitals/IOs Vital Signs Date Time Temp Pulse Resp B/P (MAP) Pulse Ox O2 Delivery O2 Flow Rate FiO2 03/23/17 05:40 98.4 83 15 127/59 (81) 99 03/21/17 13:23 Room Air Intake and Output 03/23/17 03/23/17 03/24/17 08:00 16:00 00:00 Intake Total 240 ml 960 ml Output Total 1100 ml Balance -860 ml 960 ml Assessment & Plan Problem List: (1) Severe major depression, single episode, without psychotic features ICD Codes: F32.2 - Major depressive disorder, single episode, severe without psychotic features Status: Acute Assessment & Plan: Patient continues to report severe symptomatology of depression, suicidal thoughts, no plan. Contracted for safety in the unit. We' ll start Cymbalta 20 mg daily. Clonazepam 1 mg at bedtime to help with sleep. Assessment & Plan Estimated LOS: days Justification for Cont. Inpt. Patient continues to show symptomatology of severe depression, he has recently tried to commit suicide by cutting his wrist. It is to continue psychiatric hospitalization for stabilization. Request HC Surrog/Guard Advoc?: Ayden Bosch MD Mar 23, 2017 14:17
[2017-03-23 17:40] VITALS: BP 132/73; PULSE 105; RESP 16; TEMP 98.9; O2SAT 95
[2017-03-23] MEDS ORDERED: IOHEXOL 350 MG/ML 10 ML VIAL (for RAD DIAG) IVCONTRAST ONE (20:47)
--- NOTE | 2017-03-23 21:12 | RADRPT ---
EXAM DATE/TIME: 03/23/2017 20:41 [place] COMPARISON: No previous studies available for comparison. INDICATIONS : Diffuse abdominal pain. IV CONTRAST: 94 cc Omnipaque 350 (iohexol) IV ORAL CONTRAST: No oral contrast ingested. RADIATION DOSE: 10.67 CTDIvol (mGy) MEDICAL HISTORY : Myocardial infarction. Cardiovascular disease Coronary artery disease. SURGICAL HISTORY : CABG Cholecystectomy.Left hip surgery. ENCOUNTER: Initial ACUITY: 1 day PAIN SCALE: 4/10 LOCATION: Bilateral abdomen TECHNIQUE: Volumetric scanning of the abdomen and pelvis was performed. Using automated exposure control and ad justment of the mA and/or kV according to patient size, radiation dose was kept as low as reasonably achievable to obtain optimal diagnostic quality images. DICOM format image data is available electro nically for review and comparison. FINDINGS: Extremely large amount of stool is seen throughout the colon, especially the rectum. There is a right inguinal hernia containing a small portion of the cecum but does not appear acutely inflamed or cont ributory. Multiple cysts are seen of both kidneys measuring up to 2.5 cm in size. There are areas of heterogene ous enhancement of both kidneys as well, mostly the right mid zone and left upper pole. There is no h ydronephrosis or hydroureter. No renal stones are demonstrated but there is a very large stone in the urinary bladder. A suprapubic catheter is present. There does seem to be some bladder wall thickenin g. There is elevated left hemidiaphragm. Visualized lung bases are clear. Patient has had previous media n sternotomy. CONCLUSION: 1. Extremely large amount of stool throughout the colon, especially the rectum. 2. Right inguinal hernia containing a small portion of the cecum but without associated obstruction o r significant inflammatory changes. 3. Patchy heterogeneous enhancement of both kidneys as above and this finding is of concern for possi ble pyelonephritis in the proper clinical setting. Acute tubular necrosis would also be in the differ ential. No evidence of obstructive uropathy. 4. 6.1 cm bladder stone. Suprapubic catheter present. Bladder wall appears thickened. 5. Elevated left hemidiaphragm, not significantly changed back to at least January of 2016. Patient has had previous median sternotomy. Francesco Saleh MD on March 23, 2017 at 21:05 Board Certified Radiologist. This report was verified electronically.
[2017-03-23] MEDS: clonazePAM 1 MG TAB PO SCH (21:32)
[2017-03-24 06:10] VITALS: BP 122/60; PULSE 78; RESP 15; TEMP 98.4; O2SAT 95
--- NOTE | 2017-03-24 09:02 | HHI.PR ---
Subjective Remarks In bed, eating better, has a good appetite. No n/v/d. Has constipation. Denies chest pain or sob. No fever or chills. Pain is better controlled. Has rectal pain chronic says he has a special cushin at home and his son is going to bring it here. Also will like to have more PT. Says he walks with a walker at home. Objective Vitals Vital Signs Date Time Temp Pulse Resp B/P (MAP) Pulse Ox O2 Delivery O2 Flow Rate FiO2 03/24/17 06:10 98.4 78 15 122/60 (80) 95 03/23/17 17:40 98.9 105 16 132/73 (92) 95 I/O 03/23/17 03/23/17 03/23/17 03/24/17 03/24/17 03/24/17 07:00 15:00 23:00 07:00 15:00 23:00 Intake Total 240 ml 960 ml 960 ml 240 ml Output Total 1100 ml 1300 ml 700 ml Balance -860 ml 960 ml -340 ml -460 ml Intake Oral 240 ml 960 ml 960 ml 240 ml Output Urine Total 1100 ml 1300 ml 700 ml Result Diagram: 03/23/17 0843 03/23/17 0843 Imaging Last Impressions Abdomen/Pelvis CT 03/22/17 0000 Signed Impressions: Service Date/Time: Thursday, March 23, 2017 20:41 - CONCLUSION: 1. Extremely large amount of stool throughout the colon, especially the rectum. 2. Right inguinal hernia containing a small portion of the cecum but without associated obstruction or significant inflammatory changes. 3. Patchy heterogeneous enhancement of both kidneys as above and this finding is of concern for possible pyelonephritis in the proper clinical setting. Acute tubular necrosis would also be in the differential. No evidence of obstructive uropathy. 4. 6.1 cm bladder stone. Suprapubic catheter present. Bladder wall appears thickened. 5. Elevated left hemidiaphragm, not significantly changed back to at least January of 2016. Patient has had previous median sternotomy. Francesco Saleh MD Objective Remarks GENERAL: This is a well-nourished, well-developed male patient, sitting up in chair in no apparent distress. SKIN: No rashes. Warm and dry. HEENT: Atraumatic. Normocephalic. Pupils equal round and reactive. Extraocular motions intact. No scleral icterus. No injection or drainage. Nose without bleeding. Airway patent. NECK: Trachea midline. No JVD. Supple. CARDIOVASCULAR: Regular rate and rhythm without murmurs, gallops, or rubs. RESPIRATORY: Clear to auscultation. Breath sounds equal bilaterally. No wheezes , rales, or rhonchi. GASTROINTESTINAL: Abdomen soft, non-tender, nondistended. No guarding. : Suprapubic catheter noted. MUSCULOSKELETAL: Extremities without clubbing, cyanosis, or edema. No joint tenderness, effusion, or edema noted. Bilateral lower extremity erythema, dry skin noted, with left lateral and medial wounds noted. NEUROLOGICAL: Awake and alert. Cranial nerves II through XII intact. Motor and sensory grossly within normal limits. Five out of 5 muscle strength in all muscle groups. Normal speech. A/P Problem List: (1) Depression ICD Code: F32.9 - Major depressive disorder, single episode, unspecified Status: Acute (2) Suicidal ideation ICD Code: R45.851 - Suicidal ideations Status: Acute (3) UTI (lower urinary tract infection) ICD Code: N39.0 - Lower urinary tract infectious disease Status: Acute Assessment and Plan Mr. Dubose is a 72-year-old male patient with a known depression, dementia, chronic back pain, anemia, CAD, hyperlipidemia and neurogenic bladder who presented to the ED with suicidal ideations. Hospitalist team consulted for medical management. Depression with suicidal ideation History of dementia - Management per psychiatry team. Diffuse Abdominal pain. Improving.CT scan abd.pelvis reviewed. Patient with large bladder stone, also constipation. Antiemetics as need. Continue stool softeners/ laxatives. Restart home pain meds, add norco for breakthrough pain. Constipation, chronic: Senna PO daily. Milk of magnesium PRN available. Neurogenic bladder presence of suprapubic catheter Urinary tract infection - UA showing large amount of leukocyte esterase and innumerable WBCs. Urine culture showing pseudomonas. Awaiting MANAV, follow. - Given Rocephin IV x 1 in Ed. - Continue ciprofloxacin 500 mg PO BID. - Primary team placed consult to urology for draining suprapubic catheter. Urology was also consulted started oxybutinin, to follow up as OP with urology Hypertension: Mildly elevated, systolic in the 150's, possibly pain related. Monitor BP. Chronic back pain: Continue home Flexeril and Lyrica. Will restart tramadol. Left ankle lateral and medial wound: Consult placed to wound care, appreciate input. Wound cultures ordered. Bacitracin for now. DVT prophylaxis: Discussed with the patient,. nurse Monroe for CT scan , patient is not able to tolerate contrast and will do modified CT Problem Qualifiers (1) Depression: Qualified Codes: F32.9 - Major depressive disorder, single episode, unspecified Hortensia Mcduffie MD Mar 24, 2017 09:02
[2017-03-24] MEDS ORDERED: MAGNESIUM HYDROXIDE SUSP 30 ML CUP PO PRN (09:15)
[2017-03-24] MEDS ORDERED: LACTULOSE SYRUP 20 GM/30 ML CUP PO PRN (09:15)
[2017-03-24] MEDS: CIPROFLOXACIN 500 MG TAB PO SCH ×2 (09:24→21:33)
[2017-03-24] MEDS: ASPIRIN EC 81 MG TABEC PO SCH (09:24)
[2017-03-24] MEDS: LACTOBACILLUS ACIDOPHILUS TAB PO SCH ×2 (09:25→21:34)
[2017-03-24] MEDS: DULoxetine HCl DR 20 MG CAP PO SCH (09:25)
[2017-03-24] MEDS: PREGABALIN 100 MG CAP PO SCH ×2 (09:25→21:34)
[2017-03-24] MEDS: BACITRACIN TOP OINT 15 GM TUBE TOPICAL SCH ×2 (09:25→21:35)
[2017-03-24] MEDS: DOCUSATE SODIUM 50 MG/SENNA 8.6 MG TAB PO SCH ×2 (10:17→21:34)
[2017-03-24 12:11] LABS: AUTOMATED NEUTROPHIL # 5.6 TH/MM3 (1.8-7.7); BASOPHIL % 0.6 % (0.0-2.0); EOSINOPHIL # 0.2 TH/MM3 (0-0.4); EOSINOPHIL % 2.4 % (0.0-4.0); HEMATOCRIT 39.6 % (39.0-51.0); HEMO FLAGS DIFF FINAL; LYMPH % 12.8 % (9.0-44.0); LYMPHOCYTE # 0.9 TH/MM3 (1.0-4.8); MEAN CELL VOLUME 86.6 FL (80.0-100.0); MEAN CORPUSCULAR HEMOGLOBIN 28.2 PG (27.0-34.0); MEAN CORPUSCULAR HGB CONC 32.6 % (32.0-36.0); MONO % 8.5 % (0.0-8.0); NEUT % 75.7 % (16.0-70.0); PLATELET COUNT 333 TH/MM3 (150-450); RED BLOOD COUNT 4.57 MIL/MM3 (4.50-5.90); RED CELL DISTRIBUTION WIDTH 14.5 % (11.6-17.2); WHITE BLOOD COUNT 7.4 TH/MM3 (4.0-11.0)
[2017-03-24 12:45] LABS: BICARBONATE 31.1 MEQ/L (21.0-32.0)
--- NOTE | 2017-03-24 13:44 | HHI.PYPN ---
Subjective Remarks Patient was seen today for psychiatric reevaluation, patient is found calm, cooperative and pleasant. Patient is easily engageable in conversations, very talkative, he says that he feels much better. Patient says that he doesn't understand how he could hurt himself. He says that he understands that he has been "a little bit sad"in the last days, but he enjoys his life, he is motivated to get better. At this moment patient denies SI, HI, he denies visual and auditory hallucinations. He is oriented 3. Compliant with medications, no significant side effects. Review of Systems Other No somatic complaints Objective Alert: Yes [place]: Person, Place, Date, Situation Mood: Calm, Depressed Affect: Restricted Memory Intact: Immediate, Recent, Remote, Comment Hallucinations: Other (denies) Delusions: No Delusion Type: Other (moderately vigilant) Suicidal: Ideation (suicidal thoughts, but not plan) Homicidal: Ideation Insight/Judgment Fair Labs Test 03/24/17 11:20 White Blood Count 7.4 TH/MM3 Red Blood Count 4.57 MIL/MM3 Hemoglobin 12.9 GM/DL Hematocrit 39.6 % Mean Corpuscular Volume 86.6 FL Mean Corpuscular Hemoglobin 28.2 PG Mean Corpuscular Hemoglobin Concent 32.6 % Red Cell Distribution Width 14.5 % Platelet Count 333 TH/MM3 Mean Platelet Volume 7.3 FL Neutrophils (%) (Auto) 75.7 % Lymphocytes (%) (Auto) 12.8 % Monocytes (%) (Auto) 8.5 % Eosinophils (%) (Auto) 2.4 % Basophils (%) (Auto) 0.6 % Neutrophils # (Auto) 5.6 TH/MM3 Lymphocytes # (Auto) 0.9 TH/MM3 Monocytes # (Auto) 0.6 TH/MM3 Eosinophils # (Auto) 0.2 TH/MM3 Basophils # (Auto) 0.0 TH/MM3 CBC Comment DIFF FINAL Differential Comment Blood Urea Nitrogen 18 MG/DL Creatinine 0.67 MG/DL Random Glucose 99 MG/DL Calcium Level 8.9 MG/DL Sodium Level 133 MEQ/L Potassium Level 4.0 MEQ/L Chloride Level 95 MEQ/L Carbon Dioxide Level 31.1 MEQ/L Anion Gap 7 MEQ/L Estimat Glomerular Filtration Rate 117 ML/MIN Date/Time Source Procedure Growth Status 03/20/17 16:15 Urine Random Urine Urine Culture - Final Pseudomonas Aeruginosa Complete Vitals/IOs Vital Signs Date Time Temp Pulse Resp B/P (MAP) Pulse Ox O2 Delivery O2 Flow Rate FiO2 03/24/17 06:10 98.4 78 15 122/60 (80) 95 03/21/17 13:23 Room Air Intake and Output 03/24/17 03/24/17 03/25/17 08:00 16:00 00:00 Intake Total 240 ml Output Total 700 ml Balance -460 ml Assessment & Plan Problem List: (1) Severe major depression, single episode, without psychotic features ICD Codes: F32.2 - Major depressive disorder, single episode, severe without psychotic features Status: Acute Assessment & Plan: Will increase Cymbalta to 40 mg for depression. Assessment & Plan Estimated LOS: days Justification for Cont. Inpt. Has an elevated risk to decompensate at a lower level of care. Request HC Surrog/Guard Advoc?: No Ayden Coats MD Mar 24, 2017 13:44
[2017-03-24] MEDS: clonazePAM 1 MG TAB PO SCH (21:33)
[2017-03-24 22:42] VITALS: BP 144/77; PULSE 105; RESP 18; TEMP 98.8; O2SAT 100
[2017-03-24] MEDS: BISACODYL 10 MG SUPP RECTAL PRN (23:08)
[2017-03-25 06:05] VITALS: BP 132/70; PULSE 90; RESP 16; TEMP 98.1; O2SAT 98
[2017-03-25] MEDS ORDERED: DULoxetine HCl DR 20 MG CAP PO SCH (09:00)
[2017-03-25] MEDS: PREGABALIN 100 MG CAP PO SCH ×2 (09:18→20:28)
[2017-03-25] MEDS: ASPIRIN EC 81 MG TABEC PO SCH (09:19)
[2017-03-25] MEDS: CIPROFLOXACIN 500 MG TAB PO SCH ×2 (09:19→20:28)
[2017-03-25] MEDS: DOCUSATE SODIUM 50 MG/SENNA 8.6 MG TAB PO SCH ×2 (09:19→20:28)
[2017-03-25] MEDS: BACITRACIN TOP OINT 15 GM TUBE TOPICAL SCH ×2 (09:19→20:29)
[2017-03-25] MEDS: LACTOBACILLUS ACIDOPHILUS TAB PO SCH ×2 (09:19→20:28)
[2017-03-25] MEDS: BISACODYL 10 MG SUPP RECTAL PRN (09:19)
--- NOTE | 2017-03-25 09:39 | HHI.PR ---
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 Patient in bed, appears in nad. Says he had a small BM last night. Attempted disimpaction. No fever or chills. No nausea or vomiting. Denies abdominal pain. Eating well. Objective Vitals Vital Signs Date Time Temp Pulse Resp B/P (MAP) Pulse Ox O2 Delivery O2 Flow Rate FiO2 03/25/17 06:05 98.1 90 16 132/70 (90) 98 03/24/17 22:42 98.8 105 18 144/77 (99) 100 I/O 03/24/17 03/24/17 03/24/17 03/25/17 03/25/17 03/25/17 07:00 15:00 23:00 07:00 15:00 23:00 Intake Total 240 ml 960 ml 1320 ml Output Total 700 ml 1100 ml 1250 ml Balance -460 ml -1100 ml 960 ml 70 ml Intake Oral 240 ml 960 ml 1320 ml Output Urine Total 700 ml 1100 ml 1250 ml Result Diagram: 03/24/17 1120 03/24/17 1120 Imaging Last Impressions Abdomen/Pelvis CT 03/22/17 0000 Signed Impressions: Service Date/Time: Thursday, March 23, 2017 20:41 - CONCLUSION: 1. Extremely large amount of stool throughout the colon, especially the rectum. 2. Right inguinal hernia containing a small portion of the cecum but without associated obstruction or significant inflammatory changes. 3. Patchy heterogeneous enhancement of both kidneys as above and this finding is of concern for possible pyelonephritis in the proper clinical setting. Acute tubular necrosis would also be in the differential. No evidence of obstructive uropathy. 4. 6.1 cm bladder stone. Suprapubic catheter present. Bladder wall appears thickened. 5. Elevated left hemidiaphragm, not significantly changed back to at least January of 2016. Patient has had previous median sternotomy. Francesco Saleh MD Objective Remarks GENERAL: This is a well-nourished, well-developed male patient, sitting up in chair in no apparent distress. SKIN: No rashes. Warm and dry. HEENT: Atraumatic. Normocephalic. Pupils equal round and reactive. Extraocular motions intact. No scleral icterus. No injection or drainage. Nose without bleeding. Airway patent. NECK: Trachea midline. No JVD. Supple. CARDIOVASCULAR: Regular rate and rhythm without murmurs, gallops, or rubs. RESPIRATORY: Clear to auscultation. Breath sounds equal bilaterally. No wheezes , rales, or rhonchi. GASTROINTESTINAL: Abdomen soft, non-tender, nondistended. No guarding. : Suprapubic catheter noted. MUSCULOSKELETAL: Extremities without clubbing, cyanosis, or edema. No joint tenderness, effusion, or edema noted. Bilateral lower extremity erythema, dry skin noted, with left lateral and medial wounds noted. NEUROLOGICAL: Awake and alert. Cranial nerves II through XII intact. Motor and sensory grossly within normal limits. Five out of 5 muscle strength in all muscle groups. Normal speech. A/P Problem List: (1) Depression ICD Code: F32.9 - Major depressive disorder, single episode, unspecified Status: Acute (2) Suicidal ideation ICD Code: R45.851 - Suicidal ideations Status: Acute (3) UTI (lower urinary tract infection) ICD Code: N39.0 - Lower urinary tract infectious disease Status: Acute Assessment and Plan Mr. Dubose is a 72-year-old male patient with a known depression, dementia, chronic back pain, anemia, CAD, hyperlipidemia and neurogenic bladder who presented to the ED with suicidal ideations. Hospitalist team consulted for medical management. Depression with suicidal ideation History of dementia - Management per psychiatry team. Diffuse Abdominal pain. Improving.CT scan abd.pelvis reviewed. Patient with large bladder stone, also constipation. Antiemetics as need. Continue stool softeners/ laxatives. Restart home pain meds, add norco for breakthrough pain. Constipation, chronic: Senna PO daily. Milk of magnesium, lactulose, dulcolax sup as need, will do enema if not relived. Attempted disimpaction. Neurogenic bladder presence of suprapubic catheter Urinary tract infection - UA showing large amount of leukocyte esterase and innumerable WBCs. Urine culture showing pseudomonas. Awaiting MANAV, follow. - Given Rocephin IV x 1 in Ed. - Continue ciprofloxacin 500 mg PO BID. - Primary team placed consult to urology for draining suprapubic catheter. Urology was also consulted started oxybutinin, to follow up as OP with urology Hypertension: Mildly elevated, systolic in the 150's, possibly pain related. Monitor BP. Chronic back pain: Continue home Flexeril and Lyrica. Will restart tramadol. Left ankle lateral and medial wound: Consult placed to wound care, appreciate input. Wound cultures ordered. Bacitracin for now. DVT prophylaxis: Discussed with the patient, nurse Problem Qualifiers (1) Depression: Qualified Codes: F32.9 - Major depressive disorder, single episode, unspecified Hortensia Mcduffie MD Mar 25, 2017 09:39
--- NOTE | 2017-03-25 15:10 | HHI.PYPN ---
Subjective Remarks Patient was seen today for psychiatric reevaluation, patient is calm, cooperative and very pleasant. Patient reports that his mood is quite improved , yesterday he received a visit of one of his kids "and we really had a good time here". Patient denies suicidal and homicidal ideation, he denies visual and auditory hallucinations. Patient is oriented 3. Compliant with his medications, no significant side effects. Objective Alert: Yes [place]: Person, Place, Date, Situation Mood: Calm, Depressed Affect: Restricted Memory Intact: Immediate, Recent, Remote, Comment Hallucinations: Other (denies) Delusions: No Delusion Type: Other (moderately vigilant) Suicidal: Ideation (suicidal thoughts, but not plan) Homicidal: Ideation Insight/Judgment Poor Labs Date/Time Source Procedure Growth Status 03/20/17 16:15 Urine Random Urine Urine Culture - Final Pseudomonas Aeruginosa Complete Vitals/IOs Vital Signs Date Time Temp Pulse Resp B/P (MAP) Pulse Ox O2 Delivery O2 Flow Rate FiO2 03/25/17 06:05 98.1 90 16 132/70 (90) 98 03/21/17 13:23 Room Air Intake and Output 03/25/17 03/25/17 03/26/17 08:00 16:00 00:00 Intake Total 360 ml 760 ml Output Total 600 ml Balance -240 ml 760 ml Assessment & Plan Problem List: (1) Severe major depression, single episode, without psychotic features ICD Codes: F32.2 - Major depressive disorder, single episode, severe without psychotic features Status: Acute Assessment & Plan: Will increase Cymbalta to 60 mg daily. Assessment & Plan Estimated LOS: days Justification for Cont. Inpt. Patient has an elevated risk to decompensate at a lower level of care. Request HC Surrog/Guard Advoc?: No Ayden Coats MD Mar 25, 2017 15:10
[2017-03-25] MEDS: traMADol HCL 50 MG TAB PO PRN (17:42)
[2017-03-25 19:02] VITALS: BP 126/73; PULSE 100; RESP 18; TEMP 98.3
[2017-03-25] MEDS: clonazePAM 1 MG TAB PO SCH (20:28)
[2017-03-26 05:55] VITALS: BP 132/76; PULSE 91; RESP 18; TEMP 97.7; O2SAT 97
[2017-03-26] MEDS: LACTOBACILLUS ACIDOPHILUS TAB PO SCH (08:01)
[2017-03-26] MEDS: PREGABALIN 100 MG CAP PO SCH (08:01)
[2017-03-26] MEDS: traMADol HCL 50 MG TAB PO PRN (08:01)
[2017-03-26] MEDS: CIPROFLOXACIN 500 MG TAB PO SCH (08:01)
[2017-03-26] MEDS: BACITRACIN TOP OINT 15 GM TUBE TOPICAL SCH (08:01)
[2017-03-26] MEDS: ASPIRIN EC 81 MG TABEC PO SCH (08:01)
[2017-03-26] MEDS: DOCUSATE SODIUM 50 MG/SENNA 8.6 MG TAB PO SCH (08:01)
--- NOTE | 2017-03-26 08:57 | HHI.PR ---
Subjective Remarks Seen earlier , feels much better . No and pain , no fever or chills. No n/v/d/c. Objective Vitals Vital Signs Date Time Temp Pulse Resp B/P (MAP) Pulse Ox O2 Delivery O2 Flow Rate FiO2 03/26/17 05:55 97.7 91 18 132/76 (94) 97 03/25/17 19:02 98.3 100 18 126/73 (90) I/O 03/25/17 03/25/17 03/25/17 03/26/17 03/26/17 03/26/17 07:00 15:00 23:00 07:00 15:00 23:00 Intake Total 1320 ml 760 ml 1000 ml 1200 ml Output Total 1250 ml 1803 ml 1900 ml Balance 70 ml 760 ml -803 ml -700 ml Intake Oral 1320 ml 760 ml 1000 ml 1200 ml Output Urine Total 1250 ml 1800 ml 1900 ml Stool Total 3 ml # Bowel Movements 3 2 Result Diagram: 03/24/17 1120 03/24/17 1120 Imaging Last Impressions Abdomen/Pelvis CT 03/22/17 0000 Signed Impressions: Service Date/Time: Thursday, March 23, 2017 20:41 - CONCLUSION: 1. Extremely large amount of stool throughout the colon, especially the rectum. 2. Right inguinal hernia containing a small portion of the cecum but without associated obstruction or significant inflammatory changes. 3. Patchy heterogeneous enhancement of both kidneys as above and this finding is of concern for possible pyelonephritis in the proper clinical setting. Acute tubular necrosis would also be in the differential. No evidence of obstructive uropathy. 4. 6.1 cm bladder stone. Suprapubic catheter present. Bladder wall appears thickened. 5. Elevated left hemidiaphragm, not significantly changed back to at least January of 2016. Patient has had previous median sternotomy. Francesco Saleh MD Objective Remarks GENERAL: This is a well-nourished, well-developed male patient, sitting up in chair in no apparent distress. SKIN: No rashes. Warm and dry. HEENT: Atraumatic. Normocephalic. Pupils equal round and reactive. Extraocular motions intact. No scleral icterus. No injection or drainage. Nose without bleeding. Airway patent. NECK: Trachea midline. No JVD. Supple. CARDIOVASCULAR: Regular rate and rhythm without murmurs, gallops, or rubs. RESPIRATORY: Clear to auscultation. Breath sounds equal bilaterally. No wheezes , rales, or rhonchi. GASTROINTESTINAL: Abdomen soft, non-tender, nondistended. No guarding. : Suprapubic catheter noted. MUSCULOSKELETAL: Extremities without clubbing, cyanosis, or edema. No joint tenderness, effusion, or edema noted. Bilateral lower extremity erythema, dry skin noted, with left lateral and medial wounds noted. NEUROLOGICAL: Awake and alert. Cranial nerves II through XII intact. Motor and sensory grossly within normal limits. Five out of 5 muscle strength in all muscle groups. Normal speech. A/P Problem List: (1) Depression ICD Code: F32.9 - Major depressive disorder, single episode, unspecified Status: Acute (2) Suicidal ideation ICD Code: R45.851 - Suicidal ideations Status: Acute (3) UTI (lower urinary tract infection) ICD Code: N39.0 - Lower urinary tract infectious disease Status: Acute Assessment and Plan Mr. Dubose is a 72-year-old male patient with a known depression, dementia, chronic back pain, anemia, CAD, hyperlipidemia and neurogenic bladder who presented to the ED with suicidal ideations. Hospitalist team consulted for medical management. Depression with suicidal ideation History of dementia - Management per psychiatry team. Diffuse Abdominal pain. Improving.CT scan abd.pelvis reviewed. Patient with large bladder stone, also constipation. Antiemetics as need. Continue stool softeners/ laxatives. Restart home pain meds, add norco for breakthrough pain. Constipation, chronic: Senna PO daily. Milk of magnesium, lactulose, dulcolax sup as need, will do enema if not relived. Attempted disimpaction. Neurogenic bladder presence of suprapubic catheter Urinary tract infection - UA showing large amount of leukocyte esterase and innumerable WBCs. Urine culture showing pseudomonas. Awaiting MANAV, follow. - Given Rocephin IV x 1 in Ed. - Continue ciprofloxacin 500 mg PO BID. - Primary team placed consult to urology for draining suprapubic catheter. Urology was also consulted started oxybutinin, to follow up as OP with urology Hypertension: Mildly elevated, systolic in the 150's, possibly pain related. Monitor BP. Chronic back pain: Continue home Flexeril and Lyrica. Will restart tramadol. Left ankle lateral and medial wound: Consult placed to wound care, appreciate input. Wound cultures ordered. Bacitracin for now. DVT prophylaxis: Discussed with the patient, nurse Medically stable cleared for DC Problem Qualifiers (1) Depression: Qualified Codes: F32.9 - Major depressive disorder, single episode, unspecified Hortensia Mcduffie MD Mar 26, 2017 08:57
[2017-03-26] MEDS ORDERED: DULoxetine HCl DR 60 MG CAP PO SCH (09:00)
[2017-03-26] MEDS ORDERED: DULO1CAP3 PO (13:23)
--- NOTE | 2017-03-26 16:09 | HHI.DS ---
Psychiatry Discharge Summary Inpatient Psychiatric care?: Yes Advance Directive: No Reason Not Provided: none Mental Health AdvanceDirective: No Health Care Proxy: No Admission Admission Date Mar 21, 2017 at 10:38 Admission Diagnosis: (1) Severe major depression, single episode, without psychotic features ICD Code: F32.2 - Major depressive disorder, single episode, severe without psychotic features Brief History 72-year-old male being admitted under a Amin act after a suicide attempt. According to the Amin act, the patient called his spinning mule tender and stated he did not want to live anymore. When the spinning mule tender arrived at his residence, she saw he had lacerated the inside of his left arm. Additionally, the patient had taped a DNR order to his bathroom mirror. Patient was Amin acted by law enforcement. Apparently the patient has chronic low back pain and bilateral lower leg pain with associated weakness. He reportedly could not stand the pain any longer. He was recently admitted to [facility] and left AGAINST MEDICAL ADVICE on March 14, 2017. The patient has a history of multiple medical problems including sciatica, neurogenic bladder with supra pubic catheter, anemia, coronary artery disease, and a history of being recently treated for urinary tract infection. He reportedly cut his left forearm with a piece of glass, requiring multiple sutures. Patient presents with multiple symptoms of depression including depressed mood, anhedonia, hopelessness and helplessness, suicidal ideation with attempt, diminished self-esteem, diminished energy, anxiety, insomnia, etc. There is some mention of dementia but this physician is unable to discern if the patient truly has dementia or pseudodementia related to depression. Patient does not have a history of alcohol or substance abuse. He has only a spinning mule tender for support and she comes only during the daytime. Tobacco Use In Past 30 Days: No Tobacco Past 30 Days Alcohol Use: Never Hospital Course Patient was admitted in the medical psych unit due to depression and a suicidal attempt by cutting his wrists. Immediate safety measures are taken. Psychosocial and psychiatric assessment performed. Patient was initiated in antidepressants for depressive symptoms. Since the beginning patient was remorseful about his suicide attempt, he says that he couldn't understand how he could cut himself. He says that he was vulnerable and fragile due to sense of abandonment. Patient was compliant with psychotropics, he showed a good response. During this hospitalization no agitation, no aggressive behavior were reported. Patient reached baseline and was discharged back home. Results Blood Pressure 132 / 76 Vital Signs Date Time Temp Pulse Resp B/P (MAP) Pulse Ox O2 Delivery O2 Flow Rate FiO2 03/26/17 05:55 97.7 91 18 132/76 (94) 97 Laboratory Tests Test 03/24/17 11:20 Hemoglobin 12.9 GM/DL (13.0-17.0) Neutrophils (%) (Auto) 75.7 % (16.0-70.0) Monocytes (%) (Auto) 8.5 % (0.0-8.0) Lymphocytes # (Auto) 0.9 TH/MM3 (1.0-4.8) Sodium Level 133 MEQ/L (136-145) Chloride Level 95 MEQ/L (98-107) Laboratory Results Test 03/23/17 08:43 Cholesterol Level 128 MG/DL (120-200) HDL Cholesterol 48.4 MG/DL (40.0-60.0) Hemoglobin A1c 5.0 % (4.3-6.0) LDL Cholesterol 61 MG/DL (0-99) Triglycerides Level 94 MG/DL (42-150) Summary of Procedures No procedures Imaging Last Impressions Abdomen/Pelvis CT 03/22/17 0000 Signed Impressions: Service Date/Time: Thursday, March 23, 2017 20:41 - CONCLUSION: 1. Extremely large amount of stool throughout the colon, especially the rectum. 2. Right inguinal hernia containing a small portion of the cecum but without associated obstruction or significant inflammatory changes. 3. Patchy heterogeneous enhancement of both kidneys as above and this finding is of concern for possible pyelonephritis in the proper clinical setting. Acute tubular necrosis would also be in the differential. No evidence of obstructive uropathy. 4. 6.1 cm bladder stone. Suprapubic catheter present. Bladder wall appears thickened. 5. Elevated left hemidiaphragm, not significantly changed back to at least January of 2016. Patient has had previous median sternotomy. Francesco Saleh MD Pending results at discharge: No Medications # of Antipsychotic meds at D/C: 0 Approp Antipsych med options 1 - Minimum of three failed multiple trials of monotherapy. 2 - Documented plan to taper to monotherapy due to previous use of multiple meds OR cross-taper in progress at D/C. 3 - Documentation of augmentation of Clozapine. 4 - Justification other than those listed in allowable values 1-3, document here : Discharge Discharge Date: Mar 26, 2017 Discharge Diagnosis: (1) Severe major depression, single episode, without psychotic features ICD Code: F32.2 - Major depressive disorder, single episode, severe without psychotic features Status: Acute Mental Status Exam at Disch man, age appearing, hospital [facility], calm, cooperative and very pleasant. His speech is spontaneous and fluent, mood is euthymic, affect is congruent with mood. His thought processes logical, coherent and relevant. Thought content is devoid of suicidal ideation, homicidal ideation, visual and auditory hallucinations. Annoyed, no delusions, no obsessions present. Insight , impulse control judgment good. Patient is intact. Pt Condition on Discharge: Stable Discharge Disposition: Discharge Home Discharge Instructions Diet Instructions: Heart Healthy Diet Activities you can perform: Regular-No Restrictions Scheduled Appointment: Dr. Loza Appointment Date: Apr 05, 2017 Appointment Time: 1pm Discharge Time > 30 minutes Discharge/Advance Care Plan Health Problems: (1) Severe major depression, single episode, without psychotic features Goals to promote your health * To prevent worsening of your condition and complications * To maintain your health at the optimal level Directions to meet your goals Take your medications as prescribed Follow your dietary instruction Follow activity as directed Keep your appointments as scheduled Take your immunizations and boosters as scheduled If your symptoms worsen call your PCP, if no PCP go to Urgent Care Center or Emergency Room For 29/01 questions related to your inpatient stay or results of tests pending at discharge, please contact Dr. Ayden Coats at Smoking is Dangerous to Your Health. Avoid second hand smoking Ayden Coats MD Mar 26, 2017 16:09
== END 2017-03-26 15:44 | disposition home or self-care (01) | DRG 885 ==
LOC: NEPD 13:22 → NEDA 03-21 10:38 → H250 03-21 15:58 → H4EA 03-22 15:26
PROVIDERS: ADMIT Psychiatry & Neurology Psychiatry; ATTEND Psychiatry & Neurology Psychiatry
DX: F32.2 Major depressive disorder, single episode, severe without psychotic features (principal); F03.90 Unspecified dementia, unspecified severity, without behavioral disturbance, psychotic disturbance, mood disturbance, and anxiety; R45.851 Suicidal ideations; N39.0 Urinary tract infection, site not specified; T83.510A Infection and inflammatory reaction due to cystostomy catheter, initial encounter; D64.9 Anemia, unspecified; E78.5 Hyperlipidemia, unspecified; G89.29 Other chronic pain; M54.5 Low back pain; I10 Essential (primary) hypertension; I25.10 Atherosclerotic heart disease of native coronary artery without angina pectoris; I73.9 Peripheral vascular disease, unspecified; K21.9 Gastro-esophageal reflux disease without esophagitis; K62.89 Other specified diseases of anus and rectum; N21.0 Calculus in bladder; N31.9 Neuromuscular dysfunction of bladder, unspecified; N32.89 Other specified disorders of bladder; Y84.6 Urinary catheterization as the cause of abnormal reaction of the patient, or of later complication, without mention of misadventure at the time of the procedure; Z66 Do not resuscitate; Z87.440 Personal history of urinary (tract) infections; Z87.891 Personal history of nicotine dependence; Z95.1 Presence of aortocoronary bypass graft; Z99.3 Dependence on wheelchair
CPT/HCPCS: 12004; 74177; 80048; 80053; 80061; 80307; 81001; 82306; 82607; 83036; 84443; 85025; 87077; 87086; 87186; 90471; 90714; 93005; 96365; J0696; Q9967